=== PATIENT | female | born 1995 | race Caucasian/White ===

== ENCOUNTER → 2016-12-26 | Outpatient (CLI) | payer OTHER ==
--- NOTE | 2016-12-27 12:47 | ECHOF ---
Referral Reason:R07.9 chest pain MEASUREMENTS -------- HEIGHT: 157.5 cm WEIGHT: 59.9 kg BP: IVSd: 0.8 cm (0.6 - 1.1) LVIDd: 4.1 cm (3.9 - 5.3) LVPWd: 1.0 cm (0.6 - 1.1) IVSs: 1.4 cm LVIDs: 2.3 cm LVPWs: 1.5 cm Ao Diam: 2.4 cm (2.0 - 3.7) AV Cusp: 1.9 cm (1.5 - 2.6) LA Diam: 2.7 cm (2.7 - 3.8) MV EXCURSION: 16.638 mm (> 18.000) MV EF SLOPE: 102 mm/s (70 - 150) EPSS: 0.4 cm MV E Jose: 0.93 m/s MV DecT: 223 ms MV A Jose: 0.50 m/s MV E/A Ratio: 1.88 RAP: 5.00 mmHg RVSP: 14.63 mmHg FINDINGS -------- Sinus rhythm. This was a technically good study. Left ventricular wall thickness is normal. Overall left ventricular systolic function is normal with, an EF between 55 - 60 %. The right ventricle is normal in size and function. The left atrium is normal in size. The right atrium is normal in size. The aortic valve is trileaflet, and appears structurally normal. No aortic stenosis or regurgitation. There is trace mitral regurgitation. There is mild mitral valve prolapse. Mild tricuspid regurgitation present. The right ventricular systolic pressure, as measured by Doppler, is 14.63mmHg. Pulmonic valve appears structurally normal. The aortic root size is normal. The pericardium is normal. CONCLUSIONS -------- 1. Sinus rhythm. 2. There is mild mitral valve prolapse. 3. Mild tricuspid regurgitation present. 4. The right ventricular systolic pressure, as measured by Doppler, is 14.63mmHg. 5. Pulmonic valve appears structurally normal. 6. The aortic root size is normal. 7. The pericardium is normal. 8. This was a technically good study. 9. Left ventricular wall thickness is normal. 10. Overall left ventricular systolic function is normal with, an EF between 55 - 60 %. 11. The right ventricle is normal in size and function. 12. The left atrium is normal in size. 13. The right atrium is normal in size. 14. The aortic valve is trileaflet, and appears structurally normal. No aortic stenosis or regurgitation. 15. There is trace mitral regurgitation. TIE CUTTER: Amira Urban RDCS
== END ==
LOC: RADECHMAIN 13:10
PROVIDERS: ATTEND Family Medicine
DX: I34.1 Nonrheumatic mitral (valve) prolapse (principal); I34.0 Nonrheumatic mitral (valve) insufficiency; I36.1 Nonrheumatic tricuspid (valve) insufficiency
CPT/HCPCS: 93306

== ENCOUNTER 2017-02-03 17:20 | Emergency (ER) | payer OTHER ==
--- NOTE | 2017-02-03 18:30 | ED ---
Chest Pain HPI - General Chief Complaint: Chest Pain Stated Complaint: CHEST PAIN Time Seen by Provider: 02/03/17 18:06 Source: patient, RN notes reviewed Mode of arrival: wheelchair Limitations: no limitations - History of Present Illness Initial Comments: Patient is a 21-year-old female presents emergency room for evaluation of chest pain. Patient states been having on and off chest pain for the past 4 months. Patient states she's followed up with her primary care provider and an echocardiogram done. Patient states she has an appointment with her primary care provider on Monday for results. Patient states while walking to the store today she began having left-sided chest pain lasted only a few seconds. Patient states the chest pain subsided afterwards. Patient denies any current chest pain. Patient states the chest pain is only worsened every time she walks or does a physical activity. Patient denies shortness of breath. Patient denies nausea vomiting. Patient denies the pain worsening after eating anything. Patient denies any significant past medical history. Patient states she is on control. Patient is being on any other medications. Patient denies smoking. - Related Data Home Medications Medication Instructions Recorded Confirmed Norgestimate-Ethinyl Estradiol 1 tab PO DAILY 03/22/16 02/03/17 [Sprintec 28 Day Tablet] Allergies Allergy/AdvReac Type Severity Reaction Status Date / Time No Known Allergies Allergy Verified 02/03/17 18:05 Review of Systems ROS Statement: Those systems with pertinent positive or pertinent negative responses have been documented in the HPI. ROS Other: All systems not noted in ROS Statement are negative. EKG Findings - EKG Comments: EKG Findings:: normal sinus rhythm with sinus arrhythmia, ventricular rate 68 bpm, MI interval 156 ms, QRS duration 98 ms, QT/QTC 396/421 ms Past Medical History Past Medical History: No Reported History History of Any Multi-Drug Resistant Organisms: None Reported Past Surgical History: No Surgical Hx Reported Additional Past Surgical History / Comment(s): tubes in ears Past Psychological History: ADD/ADHD Smoking Status: Never smoker Past Alcohol Use History: None Reported Past Drug Use History: None Reported General Exam - General Exam Comments Initial Comments: sitting in exam room, no acute distress. Limitations: no limitations General appearance: alert, in no apparent distress Head exam: Present: atraumatic, normocephalic, normal inspection Eye exam: Present: normal appearance ENT exam: Present: normal exam Neck exam: Present: normal inspection Respiratory exam: Present: normal lung sounds bilaterally. Absent: respiratory distress Cardiovascular Exam: Present: regular rate, normal rhythm, normal heart sounds Extremities exam: Present: normal inspection Back exam: Present: normal inspection Neurological exam: Present: alert, oriented X3, CN II-XII intact, normal gait Psychiatric exam: Present: normal affect, normal mood Skin exam: Present: warm, dry, intact, normal color. Absent: rash Course Vital Signs 02/03/17 17:54 Temperature 97.9 F Pulse Rate 79 Respiratory 16 Rate Blood Pressure 114/57 O2 Sat by Pulse 98 Oximetry Chest Pain MDM - MDM patient is a 21-year-old since emergency room for chest pain. She is chest pain while walking long distances or physical activity. Patient denies any current chest pain. X-ray shows no acute findings. Advised patient to follow- up with her primary care provider for echocardiogram results. Advised patient to refrain from starting his physical activity until reevaluated. Patient states she understands everything that was discussed with her. Return parameters discussed. Case discussed with Dr. Castillo. Disposition Clinical Impression: Chest pain Disposition: HOME SELF-CARE Condition: Good Instructions: Costochondritis (ED), Chest Pain (ED) Additional Instructions: Take Tylenol or Motrin as needed for pain. Please follow up with primary care provider for further evaluation. If any new symptom arises or symptoms worsen, return to ER as soon as possible. Referrals: Scot Neff MD [Primary Care Provider] - 1-2 days Time of Disposition: 19:39
--- NOTE | 2017-02-03 19:08 | XR ---
EXAMINATION TYPE: XR chest 2V DATE OF EXAM: 02/03/2017 6:55 PM COMPARISON: 03/22/2016 HISTORY: Irregular heart rate TECHNIQUE: Frontal and lateral views of the chest are obtained. FINDINGS: Heart and mediastinum are normal. Lungs are clear. Diaphragm is normal. Bony thorax appear s normal. IMPRESSION: Normal chest. No change.
[2017-02-03 19:47] VITALS: BP 104/63; PULSE 65; RESP 18; TEMP 97
== END 2017-02-03 19:47 | disposition home or self-care (01) ==
LOC: EC 17:20
DX: R07.9 Chest pain, unspecified (principal); Z79.3 Long term (current) use of hormonal contraceptives
CPT/HCPCS: 71020; 93005; 99285

== ENCOUNTER 2017-04-05 21:02 | Emergency (ER) | payer OTHER ==
--- NOTE | 2017-04-05 21:43 | ED ---
General Adult HPI - General Chief complaint: Recheck/Abnormal Lab/Rx Stated complaint: 3 weeks /Bleeding Time Seen by Provider: 04/05/17 21:07 Source: patient, RN notes reviewed Mode of arrival: ambulatory Limitations: no limitations - History of Present Illness Initial comments: 21-year-old female presents emergency Department chief complaint of concern for . Patient states that she stopped taking her control and today she started to have some vaginal bleeding so she is concerned that she is possibly having a miscarriage. Patient states he has not missed a menstrual cycle and she is due for one next week. Patient states she does have a history of miscarriage in the past so she was concerned. Patient denies any pain. Patient states bleeding much like a normal period. Patient states that she did not take any tests at home. Patient states that she was concerned due to her symptoms so she thought that she should be evaluated. Patient denies any recent fever, chills, shortness of breath, chest pain, back pain, abdominal pain, nausea vomiting, numbness or tingling, dysuria or hematuria, constipation or diarrhea, headaches or visual changes, or any other current symptoms. - Related Data Home Medications Medication Instructions Recorded Confirmed No Known Home Medications [No 04/05/17 04/05/17 Known Home Medications] Allergies Allergy/AdvReac Type Severity Reaction Status Date / Time No Known Allergies Allergy Verified 02/03/17 18:05 Review of Systems ROS Statement: Those systems with pertinent positive or pertinent negative responses have been documented in the HPI. ROS Other: All systems not noted in ROS Statement are negative. Past Medical History Past Medical History: No Reported History Additional Past Medical History / Comment(s): muscle spasms around her heart History of Any Multi-Drug Resistant Organisms: None Reported Past Surgical History: No Surgical Hx Reported Additional Past Surgical History / Comment(s): tubes in ears Past Psychological History: ADD/ADHD Smoking Status: Former smoker Past Alcohol Use History: Occasional Past Drug Use History: None Reported General Exam Limitations: no limitations General appearance: alert, in no apparent distress Eye exam: Present: normal appearance, PERRL, EOMI. Absent: scleral icterus, conjunctival injection, periorbital swelling ENT exam: Present: normal exam, mucous membranes moist Neck exam: Present: normal inspection. Absent: tenderness, meningismus, lymphadenopathy Respiratory exam: Present: normal lung sounds bilaterally. Absent: respiratory distress, wheezes, rales, rhonchi, stridor Cardiovascular Exam: Present: regular rate, normal rhythm, normal heart sounds. Absent: systolic murmur, diastolic murmur, rubs, gallop, clicks Neurological exam: Present: alert, oriented X3 Psychiatric exam: Present: normal affect, normal mood Skin exam: Present: warm, dry, intact, normal color. Absent: rash Course Vital Signs 04/05/17 21:20 Temperature 99.0 F Pulse Rate 89 Respiratory 18 Rate Blood Pressure 102/52 O2 Sat by Pulse 96 Oximetry Medical Decision Making - Medical Decision Making 21-year-old female presents emergency room chief complaint of concern for . At this time urine is reviewed that does appear to not be . This and there is blood. We discussed patient most likely is having menstruation. Patient is asymptomatic and more likely to be associated menstruation contamination than UTI. We did discuss that she developed symptoms she is return the emergency department. We discussed return parameters all questions. She states she understood and they're negative plan. They will be discharged. - Lab Data Lab Results 04/05/17 04/05/17 Range/Units 21:15 21:15 Urine Color Light Red Urine Appearance Cloudy H (Clear) Urine pH 6.0 (5.0-8.0) Ur Specific Golden 1.022 (1.001-1.035) Urine Protein 1+ H (Negative) Urine Glucose (UA) Negative (Negative) Urine Ketones Negative (Negative) Urine Blood Large H (Negative) Urine Nitrite Negative (Negative) Urine Bilirubin Negative (Negative) Urine Urobilinogen 3.0 (<2.0) mg/dL Ur Leukocyte Esterase Large H (Negative) Urine RBC >182 H (0-5) /hpf Urine WBC 104 H (0-5) /hpf Ur Squamous Epith Cells 5 H (0-4) /hpf Urine Mucus Occasional H (None) /hpf Urine HCG, Qual Not Detected (Not Detectd) Disposition Clinical Impression: Abnormal menses Disposition: HOME SELF-CARE Condition: Stable Instructions: Control Pills (ED) Additional Instructions: Please use medication as discussed. Please follow up with family doctor if symptoms have not improved over the next two days. Please return to the emergency room if your symptoms increase or worsen or for any other concerns. Referrals: Scot Neff MD [Primary Care Provider] - 1-2 days Time of Disposition: 21:55
[2017-04-05 21:50] VITALS: BP 102/52; PULSE 89; RESP 18; TEMP 99
[2017-04-05 21:50] LABS: Appearance,Urine Cloudy (Clear); Bilirubin,Urine Negative (Negative); Glucose,Urine (UA) Negative (Negative); Ketones,Urine Negative (Negative); Leukocyte Esterase,Urine Large (Negative); Mucus,Urine Occasional /hpf; Nitrite,Urine Negative (Negative); Particle Count 11367; Protein,Urine 1+ (Negative); RBC,Urine >182 /hpf (0-5); Specific Gravity,Urine 1.022 (1.001-1.035); Squamous Epithelial Cell,Urine 5 /hpf (0-4); UA Billing (MACRO vs. MICRO) MICRO; WBC,Urine 104 /hpf (0-5)
== END 2017-04-05 22:00 | disposition home or self-care (01) ==
LOC: EC 21:02
DX: N92.5 Other specified irregular menstruation (principal); Z87.891 Personal history of nicotine dependence
CPT/HCPCS: 81001; 81025; 99284

== ENCOUNTER 2017-06-02 17:27 | Emergency (ER) | payer OTHER ==
--- NOTE | 2017-06-02 17:54 | ED ---
General Adult HPI - General Chief complaint: Headache Stated complaint: Headache Time Seen by Provider: 06/02/17 17:40 Source: patient, RN notes reviewed Mode of arrival: ambulatory Limitations: no limitations - History of Present Illness Initial comments: Patient is a 21-year-old female who presents emergency room today with a chief complaint of headache that began yesterday when she woke up. She denies any injury or trauma. Does admit that she has a history of headache but states his headache is somewhat different than headaches she experienced in the past. She describes it as a "pounding" type headache located to the side. She currently rates it a 10/10. Patient is to nausea. She also admits to photosensitivity. She denies any other complaints or associated symptoms. Patient denies any recent fever, chills, shortness of breath, chest pain, back pain, abdominal pain , vomiting, numbness or tingling, dysuria or hematuria, constipation or diarrhea , visual changes, or any other complaints. - Related Data Home Medications Medication Instructions Recorded Confirmed Ibuprofen [Motrin] 800 mg PO TID PRN 06/02/17 06/02/17 Previous Rx's Medication Instructions Recorded Butalb/APAP/Caff 50-325-40Mg 1 tab PO Q4-6H PRN #15 tablet 06/02/17 [Fioricet 50-325-40] Fluticasone Propionate [Flonase 1 - 2 spray EA NOSTRIL DAILY 5 Days 06/02/17 Allergy Relief] Metoclopramide HCl [Reglan] 10 mg PO Q6HR PRN #10 day 06/02/17 Allergies Allergy/AdvReac Type Severity Reaction Status Date / Time No Known Allergies Allergy Verified 06/02/17 17:56 Review of Systems ROS Statement: Those systems with pertinent positive or pertinent negative responses have been documented in the HPI. ROS Other: All systems not noted in ROS Statement are negative. Past Medical History Past Medical History: No Reported History Additional Past Medical History / Comment(s): muscle spasms around her heart History of Any Multi-Drug Resistant Organisms: None Reported Past Surgical History: No Surgical Hx Reported Additional Past Surgical History / Comment(s): tubes in ears Past Psychological History: ADD/ADHD Smoking Status: Former smoker Past Alcohol Use History: Occasional Past Drug Use History: None Reported General Exam - General Exam Comments Initial Comments: General: The patient is awake and alert, in no distress, and does not appear acutely ill. Eye: Pupils are equal, round and reactive to light, extra-ocular movements are intact. No nystagmus. There is normal conjunctiva bilaterally. No signs of icterus. Ears, nose, mouth and throat: There are moist mucous membranes and no oral lesions. Neck: The neck is supple, there is no tenderness or JVD. Cardiovascular: There is a regular rate and rhythm. No murmur, rub or gallop is appreciated. Respiratory: Lungs are clear to auscultation, respirations are non-labored, breath sounds are equal. No wheezes, stridor, rales, or rhonchi. Gastrointestinal: Soft, non-distended, non-tender abdomen without masses or organomegaly noted. There is no rebound or guarding present. No CVA tenderness. Bowel sounds are unremarkable. Musculoskeletal: Normal ROM, no tenderness. Strength 5/5. Sensation intact. Pulses equal bilaterally 2+. Neurological: A&O x 3. CN II-XII intact, There are no obvious motor or sensory deficits. Coordination appears grossly intact. Speech is normal. Skin: Skin is warm and dry and no rashes or lesions are noted. Psychiatric: Cooperative, appropriate mood & affect, normal judgment. Limitations: no limitations Course Vital Signs 06/02/17 17:32 Temperature 99.0 F Pulse Rate 91 Respiratory 20 Rate Blood Pressure 110/58 O2 Sat by Pulse 97 Oximetry Medical Decision Making - Medical Decision Making Patient's CT has been reviewed and does show evidence for right maxillary sinusitis. No other acute abnormalities. Patient resting comfortably in stretcher. Case was discussed with attending physician . Options were discussed with patient about IV and IV medications for her headache. She states she does not like needles does not want have any IVs placed or IV medication. Patient is agreeable to oral medication for her headaches. Patient is advised follow-up family doctor in the next 2 days. Advised return here to the emergency room symptoms increase worsen. Will be given ibuprofen, Benadryl, Reglan, Fioricet by mouth here in the ER discharged home. - Lab Data Lab Results 06/02/17 Range/Units 18:25 Urine HCG, Qual Not Detected (Not Detectd) Disposition Clinical Impression: Acute headache, Sinusitis Disposition: HOME SELF-CARE Condition: Good Instructions: Acute Headache (ED) Additional Instructions: Please use medication as discussed. Please follow-up with family doctor in the next 2 days of symptoms have not improved. Please return to emergency room if the symptoms increase or worsen or for any other concerns. Prescriptions: Butalb/APAP/Caff 50-325-40Mg [Fioricet 50-325-40] 1 tab PO Q4-6H PRN #15 tablet PRN Reason: Headache Fluticasone Propionate [Flonase Allergy Relief] 1 - 2 spray EA NOSTRIL DAILY 5 Days Metoclopramide HCl [Reglan] 10 mg PO Q6HR PRN #10 day PRN Reason: Nausea Referrals: Scot Neff MD [Primary Care Provider] - 1-2 days Time of Disposition: 19:40
--- NOTE | 2017-06-02 19:26 | CT ---
EXAMINATION TYPE: CT brain wo con DATE OF EXAM: 06/02/2017 COMPARISON: NONE HISTORY: Headache for [address] DLP: 1121 mGycm. Automated Exposure Control for Dose Reduction was Utilized. TECHNIQUE: CT scan of the head is performed without contrast. FINDINGS: Ventricles and sulci appear normal. There is no mass effect nor midline shift. There is no sign of intracranial hemorrhage. The calvarium is intact. There is mild mucosal thickening in the rig ht maxillary sinus.. IMPRESSION: Mild right maxillary sinusitis. Otherwise negative exam.
[2017-06-02] MEDS ORDERED: METOCLOPRAMIDE 10 MG TAB PO STA (19:38)
[2017-06-02] MEDS ORDERED: diphenhydrAMINE 50 MG CAP PO STA (19:38)
[2017-06-02] MEDS ORDERED: IBUPROFEN 600 MG TAB PO STA (19:38)
[2017-06-02] MEDS ORDERED: BUTALB/APAP/CAFF 50-325-40MG TAB PO STA (19:38)
[2017-06-02 20:00] VITALS: BP 128/67; PULSE 89; RESP 18; TEMP 97.8
== END 2017-06-02 20:00 | disposition home or self-care (01) ==
LOC: EC 17:27
DX: J32.0 Chronic maxillary sinusitis (principal); H53.149 Visual discomfort, unspecified; Z87.891 Personal history of nicotine dependence
CPT/HCPCS: 70450; 81025; 99284

== ENCOUNTER 2018-01-04 19:22 | Emergency (ER) | payer OTHER ==
[2018-01-04 19:27] VITALS: BP 100/63; PULSE 100; RESP 20; TEMP 97.6
--- NOTE | 2018-01-04 20:13 | ED ---
General Adult HPI - General Chief complaint: Back Pain/Injury Stated complaint: Back pain Source: patient, family, RN notes reviewed Mode of arrival: ambulatory Limitations: no limitations - History of Present Illness Initial comments: Chief complaint and history of present illness a 22-year-old female with low back discomfort. No radiation. No nausea no vomiting no fever no chills. The patient thinks he strained it while lifting her 2-year-old. 3 weeks ago soon after it occurred she saw her family doctor he did x-rays lumbosacral spine. She is not gotten the results as of yet. She is run out of her Motrin 800. - Related Data Home Medications Medication Instructions Recorded Confirmed Cyclobenzaprine [Flexeril] 10 mg PO TID PRN 01/04/18 01/04/18 Previous Rx's Medication Instructions Recorded Naproxen Sodium [Anaprox] 275 mg PO BID #12 tab 01/04/18 Allergies Allergy/AdvReac Type Severity Reaction Status Date / Time No Known Allergies Allergy Verified 01/04/18 19:32 Review of Systems ROS Statement: Those systems with pertinent positive or pertinent negative responses have been documented in the HPI. Review of systems. No other complaints other than paralumbar discomfort. No pain with sitting still. Pain with flexing. Pain can be mildly controlled with putting pressure over the same muscles well flexing. No numbness no tingling to her lower extremities no difficulty urinating or bowel movements. Patient is sure she is not and declines a test. The patient did not injure herself by falling and no trauma. Repeating x-rays at this time is not necessary. Patient encouraged to call her family doctor for final results of the x-ray she had taken of the same area 3 weeks ago. Past medical problems none. Surgeries ear tubes. Family history grandfather had testicular cancer. The patient's gynecological history is G2 to para 1 with one miscarriage. Patient denies ALLERGIES she quit smoking 20 years ago. Drinks alcohol occasionally socially. ROS Other: All systems not noted in ROS Statement are negative. Past Medical History Past Medical History: No Reported History Additional Past Medical History / Comment(s): muscle spasms around her heart, shingles History of Any Multi-Drug Resistant Organisms: None Reported Past Surgical History: Ear Surgery Additional Past Surgical History / Comment(s): tubes in ears Past Psychological History: ADD/ADHD Smoking Status: Former smoker Past Alcohol Use History: Occasional Past Drug Use History: None Reported General Exam - General Exam Comments Initial Comments: General: The patient is awake and alert, in no distress, and does not appear acutely ill. Here because of lumbosacral muscular strain. No direct injuries. Vital signs temperature 97.6 pulse 100 respiratory rate 20 pulse ox 96% room air blood pressure 100/63 Eye: Pupils are equal, extra-ocular movements are intact; there is normal conjunctiva bilaterally. Ears, nose, mouth and throat: There are moist mucous membranes Neck: The neck is supple, No complaint of chest pain, palpitations or shortness of breath. No nausea no vomiting no difficulty with urinating or bowel movements. Back: Mild tenderness with flexion, mild discomfort with palpation of the area. No bulging noted. No rashes noted early shingles discussed. Negative leg lift test Musculoskeletal: Negative leg lift test. Neurological: No neuro deficits Limitations: no limitations Course Vital Signs 01/04/18 19:24 Temperature 97.6 F Pulse Rate 100 Respiratory 20 Rate Blood Pressure 100/63 O2 Sat by Pulse 96 Oximetry Medical Decision Making - Medical Decision Making Medical decision making; this is a 22-year-old female complaint of lumbosacral muscular strain. Examination followed by full explanation followed. Patient was giving advice concerning use of medications for discomfort as well as gentle stretching as well as heat alternating with cold compresses. Advised to call her family physician for x-ray results. Return emergency room as needed Disposition Clinical Impression: Strain of lumbar region Disposition: HOME SELF-CARE Condition: Stable Instructions: Acute Low Back Pain (ED) Additional Instructions: Use heat alternating with cool compresses and gentle stretching of the lumbar spine muscles. Follow-up with family physician. Return emergency room as needed Prescriptions: Naproxen Sodium [Anaprox] 275 mg PO BID #12 tab Referrals: Scot Neff MD [Primary Care Provider] - 1-2 days Time of Disposition: 20:13
== END 2018-01-04 20:17 | disposition home or self-care (01) ==
LOC: EC 19:22
DX: S39.012A Strain of muscle, fascia and tendon of lower back, initial encounter (principal); Z87.891 Personal history of nicotine dependence; X58.XXXA Exposure to other specified factors, initial encounter
CPT/HCPCS: 99283

== ENCOUNTER 2018-02-07 17:18 | Emergency (ER) | payer OTHER ==
[2018-02-07 17:31] VITALS: BP 110/70; PULSE 80; TEMP 98.5
--- NOTE | 2018-02-07 18:15 | ED ---
General Adult HPI - General Chief complaint: Upper Respiratory Infection Stated complaint: Cough & rib pain Time Seen by Provider: 02/07/18 17:36 Source: patient, RN notes reviewed Mode of arrival: ambulatory Limitations: no limitations - History of Present Illness Initial comments: Patient 22-year-old female presenting to the emergency room today with a chief complaint of cough congestion over the last week. Did see the urgent care was prescribed a cough medication and albuterol inhaler. Patient states little relief. Patient states increased cough congestion with sputum production at times. She denies any complaints or symptoms. - Related Data Home Medications Medication Instructions Recorded Confirmed Albuterol Inhaler [Ventolin Hfa 1 - 2 puff INHALATION RT-Q6H PRN 02/07/18 Inhaler] Promethazine 6.25MG/5Ml [Phenergan 6.25 mg PO HS PRN 02/07/18 02/07/18 Syrup] Previous Rx's Medication Instructions Recorded Azithromycin [Zithromax Z-pack] 0 mg PO DIRECTED #6 tab 02/07/18 Allergies Allergy/AdvReac Type Severity Reaction Status Date / Time No Known Allergies Allergy Verified 02/07/18 17:40 Review of Systems ROS Statement: Those systems with pertinent positive or pertinent negative responses have been documented in the HPI. ROS Other: All systems not noted in ROS Statement are negative. Past Medical History Past Medical History: No Reported History Additional Past Medical History / Comment(s): muscle spasms around her heart, shingles History of Any Multi-Drug Resistant Organisms: None Reported Past Surgical History: Ear Surgery Additional Past Surgical History / Comment(s): tubes in ears Past Psychological History: ADD/ADHD Smoking Status: Former smoker Past Alcohol Use History: Occasional Past Drug Use History: None Reported General Exam Limitations: no limitations Course Vital Signs 02/07/18 17:27 Temperature 98.5 F Pulse Rate 80 Respiratory 16 Rate Blood Pressure 110/70 O2 Sat by Pulse 98 Oximetry Medical Decision Making - Medical Decision Making X-ray reviewed no evidence for pneumonia. Patient was started on azithromycin. Patient be discharged home. Disposition Clinical Impression: Acute bronchitis Disposition: HOME SELF-CARE Condition: Good Instructions: Upper Respiratory Infection (ED) Additional Instructions: Please use medication as discussed. Please follow-up with family doctor in the next 2 days of symptoms have not improved. Please return to emergency room if the symptoms increase or worsen or for any other concerns. Prescriptions: Azithromycin [Zithromax Z-pack] 0 mg PO DIRECTED #6 tab Is patient prescribed a controlled substance at d/c from ED?: No Referrals: Scot Neff MD [Primary Care Provider] - 1-2 days Time of Disposition: 18:15
--- NOTE | 2018-02-07 18:15 | XR ---
EXAMINATION TYPE: XR chest 2V DATE OF EXAM: 02/07/2018 COMPARISON: 02/03/17 HISTORY: Chest pain TECHNIQUE: Frontal and lateral views of the chest are obtained. FINDINGS: There is no focal air space opacity. No evidence for pneumothorax. No pleural effusion. The cardiac silhouette size is within normal limits. The osseous structures are grossly intact. IMPRESSION: 1. No acute cardiopulmonary process.
[2018-02-07 18:37] VITALS: RESP 18
== END 2018-02-07 18:37 | disposition home or self-care (01) ==
LOC: EC 17:18
DX: J20.9 Acute bronchitis, unspecified (principal); Z87.891 Personal history of nicotine dependence
CPT/HCPCS: 71046; 99283

== ENCOUNTER 2018-02-09 01:05 | Emergency (ER) | payer OTHER ==
[2018-02-09 01:18] VITALS: RESP 16
[2018-02-09] MEDS ORDERED: ONDANSETRON 4 MG/2 ML VIAL IVP STA (01:49)
[2018-02-09] MEDS ORDERED: SODIUM CHLORIDE 0.9% 1,000 ML IV ONE (01:49)
[2018-02-09 02:08] LABS: Appearance,Urine Clear (Clear); Basophils % (A) 1 %; Bilirubin,Urine Negative (Negative); Blood,Urine Negative (Negative); Color,Urine Colorless; Eosinophils # (A) 0.2 k/uL (0-0.7); Eosinophils % (A) 4 %; Glucose,Urine (UA) Negative (Negative); HCT 41.6 % (34.0-46.0); HGB 14.1 gm/dL (11.4-16.0); Ketones,Urine Negative (Negative); Leukocyte Esterase,Urine Negative (Negative); Lymphocytes # (A) 1.5 k/uL (1.0-4.8); Lymphocytes % (A) 26 %; MCH 29.4 pg (25.0-35.0); MCHC 33.9 g/dL (31.0-37.0); MCV 86.5 fL (80.0-100.0); Mean Platelet Volume 6.9; Monocytes # (A) 0.4 k/uL (0-1.0); Monocytes % (A) 7 %; Neutrophils # (A) 3.5 k/uL (1.3-7.7); Neutrophils % (A) 61 %; Nitrite,Urine Negative (Negative); PH, Urine 6.5 (5.0-8.0); Platelet Count 252 k/uL (150-450); Protein,Urine Negative (Negative); RDW 12.8 % (11.5-15.5); Specific Gravity,Urine 1.002 (1.001-1.035); Urobilinogen,Urine <2.0 mg/dL (<2.0); WBC 5.8 k/uL (3.8-10.6)
[2018-02-09 02:22] LABS: ALT 30 U/L (9-52); AST 20 U/L (14-36); Albumin 3.5 g/dL (3.5-5.0); Alkaline Phosphatase 49 U/L (38-126); Anion Gap 9 mmol/L; Blood Urea Nitrogen 9 mg/dL (7-17); Calcium 9.4 mg/dL (8.4-10.2); Carbon Dioxide 26 mmol/L (22-30); Chloride 106 mmol/L (98-107); Glucose 86 mg/dL (74-99); Potassium 4.3 mmol/L (3.5-5.1); Sodium 141 mmol/L (137-145); Total Bilirubin 0.7 mg/dL (0.2-1.3); Total Protein 5.8 g/dL (6.3-8.2)
--- NOTE | 2018-02-09 02:40 | ED ---
Dizziness HPI - General Chief Complaint: Dizziness Stated Complaint: Vertigo Time Seen by Provider: 02/09/18 01:30 Source: patient, family, EMS Mode of arrival: EMS Limitations: no limitations - History of Present Illness Initial Comments: This patient is 22-year-old woman who presents with complaint that she is feeling dizzy, lightheaded, and having nausea. The patient states that this has come on over the past nearly one day. Prior to that she was having cough with some chest congestion. She was seen here 2 days ago, diagnosed with bronchitis and started on medications for that. MD Complaint: dizziness, lightheadedness Onset/Timin -: days(s) Timing: gradual onset Description: nausea, near-syncope History of Same: No History of Trauma: No Severity: moderate Improves With: remaining still Associated Symptoms: cough - Related Data Home Medications Medication Instructions Recorded Confirmed Albuterol Inhaler [Ventolin Hfa 1 - 2 puff INHALATION RT-Q6H PRN 02/07/18 Inhaler] Promethazine 6.25MG/5Ml [Phenergan 6.25 mg PO HS PRN 02/07/18 02/07/18 Syrup] Previous Rx's Medication Instructions Recorded Azithromycin [Zithromax Z-pack] 0 mg PO DIRECTED #6 tab 02/07/18 Famotidine [Pepcid] 20 mg PO BID #14 tablet 02/09/18 Ondansetron Odt [Zofran ODT] 4 mg PO Q8HR PRN #10 tab 02/09/18 Allergies Allergy/AdvReac Type Severity Reaction Status Date / Time No Known Allergies Allergy Verified 02/09/18 01:18 Review of Systems ROS Statement: Those systems with pertinent positive or pertinent negative responses have been documented in the HPI. ROS Other: All systems not noted in ROS Statement are negative. Constitutional: Denies: fever, chills ENT: Reports: congestion. Denies: throat pain Respiratory: Reports: cough. Denies: dyspnea, hemoptysis Cardiovascular: Denies: chest pain, palpitations Gastrointestinal: Reports: nausea. Denies: abdominal pain, vomiting, diarrhea Genitourinary: Denies: dysuria, hematuria Musculoskeletal: Denies: back pain Skin: Denies: rash Neurological: Denies: headache, weakness, numbness Past Medical History Past Medical History: No Reported History Additional Past Medical History / Comment(s): muscle spasms around her heart, shingles History of Any Multi-Drug Resistant Organisms: None Reported Past Surgical History: Ear Surgery Additional Past Surgical History / Comment(s): tubes in ears Past Psychological History: ADD/ADHD Smoking Status: Former smoker Past Alcohol Use History: Occasional Past Drug Use History: None Reported General Exam Limitations: no limitations General appearance: alert, in no apparent distress Head exam: Present: atraumatic, normocephalic Eye exam: Present: normal appearance. Absent: scleral icterus, conjunctival injection ENT exam: Present: mucous membranes dry Respiratory exam: Present: normal lung sounds bilaterally. Absent: respiratory distress, wheezes, rales, rhonchi, stridor Cardiovascular Exam: Present: regular rate, normal rhythm, normal heart sounds. Absent: systolic murmur, diastolic murmur, rubs, gallop GI/Abdominal exam: Present: soft. Absent: tenderness Extremities exam: Present: normal inspection, normal capillary refill. Absent: pedal edema, calf tenderness Back exam: Present: normal inspection. Absent: CVA tenderness (R), CVA tenderness (L) Neurological exam: Present: alert Skin exam: Present: warm, dry, intact, normal color. Absent: rash Course Vital Signs 02/09/18 02/09/18 02/09/18 01:16 02:03 03:16 Temperature 97.9 F 97.3 F L Pulse Rate 66 75 79 Respiratory 16 16 16 Rate Blood Pressure 136/70 128/63 107/59 O2 Sat by Pulse 99 98 100 Oximetry Medical Decision Making - Lab Data Result diagrams: 02/09/18 01:13 02/09/18 01:13 Lab Results 02/09/18 02/09/18 02/09/18 Range/Units 01:13 01:13 01:13 WBC 5.8 (3.8-10.6) k/uL RBC 4.80 (3.80-5.40) m/uL Hgb 14.1 (11.4-16.0) gm/dL Hct 41.6 (34.0-46.0) % MCV 86.5 (80.0-100.0) fL MCH 29.4 (25.0-35.0) pg MCHC 33.9 (31.0-37.0) g/dL RDW 12.8 (11.5-15.5) % Plt Count 252 (150-450) k/uL Neutrophils % 61 % Lymphocytes % 26 % Monocytes % 7 % Eosinophils % 4 % Basophils % 1 % Neutrophils # 3.5 (1.3-7.7) k/uL Lymphocytes # 1.5 (1.0-4.8) k/uL Monocytes # 0.4 (0-1.0) k/uL Eosinophils # 0.2 (0-0.7) k/uL Basophils # 0.0 (0-0.2) k/uL Sodium 141 (137-145) mmol/L Potassium 4.3 (3.5-5.1) mmol/L Chloride 106 (98-107) mmol/L Carbon Dioxide 26 (22-30) mmol/L Anion Gap 9 mmol/L BUN 9 (7-17) mg/dL Creatinine 0.80 (0.52-1.04) mg/dL Est GFR (CKD-EPI)AfAm >90 (>60 ml/min/1.73 sqM) Est GFR (CKD-EPI)NonAf >90 (>60 ml/min/1.73 sqM) Glucose 86 (74-99) mg/dL Calcium 9.4 (8.4-10.2) mg/dL Total Bilirubin 0.7 (0.2-1.3) mg/dL AST 20 (14-36) U/L ALT 30 (9-52) U/L Alkaline Phosphatase 49 (38-126) U/L Total Protein 5.8 L (6.3-8.2) g/dL Albumin 3.5 (3.5-5.0) g/dL Urine Color Urine Appearance (Clear) Urine pH (5.0-8.0) Ur Specific [place] (1.001-1.035) Urine Protein (Negative) Urine Glucose (UA) (Negative) Urine Ketones (Negative) Urine Blood (Negative) Urine Nitrite (Negative) Urine Bilirubin (Negative) Urine Urobilinogen (<2.0) mg/dL Ur Leukocyte Esterase (Negative) Urine HCG, Qual Not Detected (Not Detectd) 02/09/18 Range/Units 01:13 WBC (3.8-10.6) k/uL RBC (3.80-5.40) m/uL Hgb (11.4-16.0) gm/dL Hct (34.0-46.0) % MCV (80.0-100.0) fL MCH (25.0-35.0) pg MCHC (31.0-37.0) g/dL RDW (11.5-15.5) % Plt Count (150-450) k/uL Neutrophils % % Lymphocytes % % Monocytes % % Eosinophils % % Basophils % % Neutrophils # (1.3-7.7) k/uL Lymphocytes # (1.0-4.8) k/uL Monocytes # (0-1.0) k/uL Eosinophils # (0-0.7) k/uL Basophils # (0-0.2) k/uL Sodium (137-145) mmol/L Potassium (3.5-5.1) mmol/L Chloride (98-107) mmol/L Carbon Dioxide (22-30) mmol/L Anion Gap mmol/L BUN (7-17) mg/dL Creatinine (0.52-1.04) mg/dL Est GFR (CKD-EPI)AfAm (>60 ml/min/1.73 sqM) Est GFR (CKD-EPI)NonAf (>60 ml/min/1.73 sqM) Glucose (74-99) mg/dL Calcium (8.4-10.2) mg/dL Total Bilirubin (0.2-1.3) mg/dL AST (14-36) U/L ALT (9-52) U/L Alkaline Phosphatase (38-126) U/L Total Protein (6.3-8.2) g/dL Albumin (3.5-5.0) g/dL Urine Color Colorless Urine Appearance Clear (Clear) Urine pH 6.5 (5.0-8.0) Ur Specific [place] 1.002 (1.001-1.035) Urine Protein Negative (Negative) Urine Glucose (UA) Negative (Negative) Urine Ketones Negative (Negative) Urine Blood Negative (Negative) Urine Nitrite Negative (Negative) Urine Bilirubin Negative (Negative) Urine Urobilinogen <2.0 (<2.0) mg/dL Ur Leukocyte Esterase Negative (Negative) Urine HCG, Qual (Not Detectd) Disposition Clinical Impression: Side effect of medication Disposition: HOME SELF-CARE Condition: Good Instructions: Dizziness (ED) Prescriptions: Famotidine [Pepcid] 20 mg PO BID #14 tablet Ondansetron Odt [Zofran ODT] 4 mg PO Q8HR PRN #10 tab PRN Reason: Nausea Is patient prescribed a controlled substance at d/c from ED?: No Referrals: Scot Neff MD [Primary Care Provider] - 1-2 days
[2018-02-09 03:17] VITALS: BP 107/59; PULSE 79; TEMP 97.3
== END 2018-02-09 03:16 | disposition home or self-care (01) ==
LOC: EC 01:05
DX: R42 Dizziness and giddiness (principal); T50.905A Adverse effect of unspecified drugs, medicaments and biological substances, initial encounter; R55 Syncope and collapse; R11.0 Nausea; Z87.891 Personal history of nicotine dependence
CPT/HCPCS: 36415; 80053; 85025; 81003; 81025; 99284; 96374; 96361; J2405

== ENCOUNTER 2018-02-11 18:51 | Emergency (ER) | payer OTHER ==
[2018-02-11 18:55] VITALS: BP 107/68; PULSE 61; RESP 18; TEMP 98.1
[2018-02-11] MEDS ORDERED: diphenhydrAMINE 50 MG CAP PO STA (19:18)
[2018-02-11] MEDS ORDERED: TRIAMCINOLONE 0.1% CREAM 80 GM TUBE TOPICAL STA (19:21)
--- NOTE | 2018-02-11 19:23 | ED ---
Skin/Abscess/FB HPI - General Chief complaint: Skin/Abscess/Foreign Body Stated complaint: Rash Time Seen by Provider: 02/11/18 18:58 Source: patient, RN notes reviewed Mode of arrival: ambulatory Limitations: no limitations - History of Present Illness Initial comments: 22-year-old female presents emergency from she complaint rash. Patient states that she noticed the rash started last 24 hours EKG she states that she has a large areas of swelling and redness. She has no difficulty breathing noted with swallowing. Patient states that she does have 4 cats in the household that do have fleas but states has had please for several years. Patient states that she recently wash her sheets because she just got rid of her head lice. Patient denies any new soaps lotions detergents. She has not put anything on her rash or taken anything to help with itchiness. - Related Data Home Medications Medication Instructions Recorded Confirmed Albuterol Inhaler [Ventolin Hfa 1 - 2 puff INHALATION RT-Q6H PRN 02/07/18 Inhaler] Promethazine 6.25MG/5Ml [Phenergan 6.25 mg PO HS PRN 02/07/18 02/07/18 Syrup] Previous Rx's Medication Instructions Recorded Azithromycin [Zithromax Z-pack] 0 mg PO DIRECTED #6 tab 02/07/18 Famotidine [Pepcid] 20 mg PO BID #14 tablet 02/09/18 Ondansetron Odt [Zofran ODT] 4 mg PO Q8HR PRN #10 tab 02/09/18 Triamcinolone 0.1% Cream [Kenalog] 1 applicatio TOPICAL BID #30 gram 02/11/18 diphenhydrAMINE [Benadryl] 50 mg PO QID PRN #20 capsule 02/11/18 Allergies Allergy/AdvReac Type Severity Reaction Status Date / Time No Known Allergies Allergy Verified 02/11/18 18:55 Review of Systems ROS Statement: Those systems with pertinent positive or pertinent negative responses have been documented in the HPI. ROS Other: All systems not noted in ROS Statement are negative. Past Medical History Past Medical History: No Reported History Additional Past Medical History / Comment(s): muscle spasms around her heart, shingles History of Any Multi-Drug Resistant Organisms: None Reported Past Surgical History: Ear Surgery Additional Past Surgical History / Comment(s): tubes in ears Past Psychological History: ADD/ADHD Smoking Status: Former smoker Past Alcohol Use History: Occasional Past Drug Use History: None Reported General Exam Limitations: no limitations General appearance: alert, in no apparent distress Head exam: Present: atraumatic, normocephalic, normal inspection Eye exam: Present: normal appearance, PERRL, EOMI. Absent: scleral icterus, conjunctival injection, periorbital swelling ENT exam: Present: normal exam, normal oropharynx, mucous membranes moist Neck exam: Present: normal inspection, full ROM. Absent: tenderness, meningismus, lymphadenopathy Respiratory exam: Present: normal lung sounds bilaterally. Absent: respiratory distress, wheezes, rales, rhonchi, stridor Cardiovascular Exam: Present: regular rate, normal rhythm, normal heart sounds. Absent: systolic murmur, diastolic murmur, rubs, gallop, clicks Skin exam: Present: warm, dry, intact, normal color, rash (There are multiple areas on her torso, extremities that have erythematous slightly raised area and central clearing) Course Vital Signs 02/11/18 18:52 Temperature 98.1 F Pulse Rate 61 Respiratory 18 Rate Blood Pressure 107/68 O2 Sat by Pulse 96 Oximetry Medical Decision Making - Medical Decision Making 22-year-old female presents from for rash. This appears to be some sort of insect bite considering fleas secondary to known animals in the household with fleas. Patient will be given Kenalog cream, advised take Benadryl. Disposition Clinical Impression: Insect bite Disposition: HOME SELF-CARE Condition: Stable Instructions: Insect Bite or Sting (ED) Additional Instructions: Please return to the Emergency Department if symptoms worsen or any other concerns. Prescriptions: diphenhydrAMINE [Benadryl] 50 mg PO QID PRN #20 capsule PRN Reason: Pruritus Triamcinolone 0.1% Cream [Kenalog] 1 applicatio TOPICAL BID #30 gram Is patient prescribed a controlled substance at d/c from ED?: No Referrals: Scot Neff MD [Primary Care Provider] - 1-2 days
== END 2018-02-11 19:45 | disposition home or self-care (01) ==
LOC: EC 18:51
DX: S20.369A Insect bite (nonvenomous) of unspecified front wall of thorax, initial encounter (principal); T14.8XXA Other injury of unspecified body region, initial encounter; Z87.891 Personal history of nicotine dependence; W57.XXXA Bitten or stung by nonvenomous insect and other nonvenomous arthropods, initial encounter
CPT/HCPCS: 99282

== ENCOUNTER 2018-05-09 18:59 | Emergency (ER) | payer OTHER ==
--- NOTE | 2018-05-09 21:15 | XR ---
EXAMINATION TYPE: XR chest 2V DATE OF EXAM: 05/09/2018 COMPARISON: 02/07/2018 HISTORY: Cough TECHNIQUE: Frontal and lateral views of the chest are obtained. FINDINGS: Heart and mediastinum are normal. Lungs are clear. Diaphragm is normal. Bony thorax appear s normal. IMPRESSION: Normal chest. No change.
--- NOTE | 2018-05-09 21:51 | ED ---
General Adult HPI - General Chief complaint: Upper Respiratory Infection Stated complaint: SOB Time Seen by Provider: 05/09/18 20:18 Source: patient, RN notes reviewed Mode of arrival: ambulatory Limitations: no limitations - History of Present Illness Initial comments: 22-year-old female presents to the emergency department for a chief complaint of cough and congestion 2 days. Patient states she has had a nonproductive cough along with a runny nose and congestion. Patient states over the past few hours she has become short of breath when she coughs. Patient denies smoking. Patient denies any history of asthma. Patient has not taken any over-the- counter medications. Patient denies any chance of . Patient denies any fevers or chills at home. Patient denies any history of cardiovascular disease Patient has no other complaints at this time including chest pain, abdominal pain, nausea or vomiting, headache, or visual changes. - Related Data Home Medications Medication Instructions Recorded Confirmed Albuterol Inhaler [Ventolin Hfa 1 - 2 puff INHALATION RT-Q6H PRN 02/07/18 Inhaler] Promethazine 6.25MG/5Ml [Phenergan 6.25 mg PO HS PRN 02/07/18 02/07/18 Syrup] Previous Rx's Medication Instructions Recorded Azithromycin [Zithromax Z-pack] 0 mg PO DIRECTED #6 tab 02/07/18 Famotidine [Pepcid] 20 mg PO BID #14 tablet 02/09/18 Ondansetron Odt [Zofran ODT] 4 mg PO Q8HR PRN #10 tab 02/09/18 Triamcinolone 0.1% Cream [Kenalog 1 applicatio TOPICAL BID #30 gram 02/11/18 0.1% Cream] diphenhydrAMINE [Benadryl] 50 mg PO QID PRN #20 capsule 02/11/18 methylPREDNISolone Dose Pack 4 mg PO DIRECTED #21 package 05/09/18 [Medrol Dose Pack] Allergies Allergy/AdvReac Type Severity Reaction Status Date / Time No Known Allergies Allergy Verified 05/09/18 19:30 Review of Systems ROS Statement: Those systems with pertinent positive or pertinent negative responses have been documented in the HPI. ROS Other: All systems not noted in ROS Statement are negative. Past Medical History Past Medical History: No Reported History Additional Past Medical History / Comment(s): muscle spasms around her heart, shingles History of Any Multi-Drug Resistant Organisms: None Reported Past Surgical History: Ear Surgery Additional Past Surgical History / Comment(s): tubes in ears Past Psychological History: ADD/ADHD Smoking Status: Former smoker Past Alcohol Use History: Occasional Past Drug Use History: None Reported General Exam Limitations: no limitations General appearance: alert, in no apparent distress Head exam: Present: atraumatic, normocephalic, normal inspection Eye exam: Present: normal appearance, PERRL, EOMI. Absent: scleral icterus, conjunctival injection, periorbital swelling ENT exam: Present: normal exam, normal oropharynx, mucous membranes moist, TM's normal bilaterally, normal external ear exam Neck exam: Present: normal inspection, full ROM. Absent: tenderness, meningismus, lymphadenopathy Respiratory exam: Present: normal lung sounds bilaterally. Absent: respiratory distress, wheezes (no wheezing noted bilat), rales, rhonchi, stridor Cardiovascular Exam: Present: regular rate, normal rhythm, normal heart sounds. Absent: systolic murmur, diastolic murmur, rubs, gallop, clicks Neurological exam: Present: alert, oriented X3, CN II-XII intact Psychiatric exam: Present: normal affect, normal mood Course Vital Signs 05/09/18 05/09/18 05/09/18 19:26 20:39 21:57 Temperature 98.2 F 98.2 F Pulse Rate 100 78 Respiratory 16 17 19 Rate Blood Pressure 109/70 115/62 O2 Sat by Pulse 96 99 Oximetry Medical Decision Making - Medical Decision Making 22-year-old female since to the emergency department for a chief complaint of cough and congestion 2 days. Patient states the cough is nonproductive. Patient denies smoking or asthma history. Patient also admits to shortness of breath for the past half a day worsened with coughing. Patient did originally have a pulse rate of 100 which decreased to 78 in the emergency department. O2 saturation at 99%. Patient is afebrile in the emergency department. Patient denies any chance of , smoking, recent trauma, or history of cancer. X -ray shows a normal chest. No change. Strep is negative. Patient likely has a viral upper respiratory infection. Mild shortness of breath is likely related to cough. Patient states shortness of breath is completely resolved at this time. Patient will be given a steroid pack. She is to take over-the- counter cold medications. She will follow up with primary care in 1-2 days. She'll return to the emergency Department if she has any worsening symptoms which she agrees to and voices understanding of. - Lab Data Lab Results 05/09/18 Range/Units 21:00 Group A Strep Rapid Negative (Negative) Disposition Clinical Impression: Upper respiratory infection Disposition: HOME SELF-CARE Condition: Good Instructions: Upper Respiratory Infection (ED) Additional Instructions: Please take prescriptions as directed. Please follow-up with primary care in 1- 2 days. Please return to the emergency department if you have any worsening symptoms Prescriptions: methylPREDNISolone Dose Pack [Medrol Dose Pack] 4 mg PO DIRECTED #21 package Is patient prescribed a controlled substance at d/c from ED?: No Referrals: Scot Neff MD [Primary Care Provider] - 1-2 days Time of Disposition: 21:49
[2018-05-09 21:59] VITALS: BP 115/62; PULSE 78; RESP 19
[2018-05-09 22:44] VITALS: TEMP 98.1
== END 2018-05-09 22:45 | disposition home or self-care (01) ==
LOC: EC 18:59
DX: J06.9 Acute upper respiratory infection, unspecified (principal); R05 Cough; Z87.891 Personal history of nicotine dependence
CPT/HCPCS: 71046; 87081; 87430; 99283

== ENCOUNTER → 2018-05-24 | Outpatient (CLI) | payer OTHER ==
--- NOTE | 2018-05-24 07:48 | US ---
EXAMINATION TYPE: US gallbladder DATE OF EXAM: 05/24/2018 COMPARISON: US 06/19/2014 CLINICAL HISTORY: R10.84 ABD PAIN. EXAM MEASUREMENTS: Liver Length: 13.6 cm Gallbladder Wall: 0.2 cm CBD: 0.3 cm Right Kidney: 9.7 x 3.4 x 3.8 cm Pancreas: Tail obscured by overlying bowel gas Liver: wnl Gallbladder: wnl Evidence for sonographic Phelan's sign: No CBD: wnl Right Kidney: No hydronephrosis or masses seen IMPRESSION: No distinct abnormality seen.
--- NOTE | 2018-05-24 08:52 | XR ---
EXAMINATION TYPE: XR abdomen 1V DATE OF EXAM: 05/24/2018 CLINICAL DATA: 22-year-old female with abdominal pain, [facility] COMPARISON: None FINDINGS: Lung bases are clear. No evidence for free intraperitoneal air. No dilated small bowel or air-fluid levels. Scattered air and stool seen throughout the colon extendi ng distally into the rectum. There is moderate stool in the rectum. No suspicious calcifications identified. A button projects at the midline pelvis. IMPRESSION: 1. The technologist indicates that the patient was unable to complete the exam; the patient was unabl e to drink the contrast material. 2.No evidence of bowel obstruction or free intraperitoneal air. 3. Moderate stool in the rectum.
== END | disposition home or self-care (01) ==
LOC: RADUSWWP 07:03
PROVIDERS: ATTEND Family Medicine
DX: R10.84 Generalized abdominal pain (principal)
CPT/HCPCS: 74018; 76705

== ENCOUNTER 2018-07-19 22:10 | Emergency (ER) | payer OTHER ==
[2018-07-19 23:56] VITALS: RESP 18
[2018-07-20] MEDS ORDERED: KETOROLAC 30 MG/ML 1 ML VIAL IM STA (00:54)
[2018-07-20] MEDS: ORPHENADRINE 30 MG/ML 2 ML VIAL IM STA ×2 (01:08→01:13)
[2018-07-20 02:07] VITALS: BP 91/54; PULSE 92
--- NOTE | 2018-07-20 02:29 | XR ---
EXAMINATION TYPE: XR chest 2V DATE OF EXAM: 07/20/2018 COMPARISON: 05/09/2018 HISTORY: Difficulty breathing TECHNIQUE: Frontal and lateral views of the chest are obtained. FINDINGS: Heart and mediastinum are normal. Lungs are clear. Diaphragm is normal. Bony thorax is int act. IMPRESSION: Normal chest. No change.
--- NOTE | 2018-07-20 02:44 | ED ---
General Adult HPI - General Chief complaint: Upper Respiratory Infection Stated complaint: hurts to breathe Time Seen by Provider: 07/19/18 23:52 Source: patient Mode of arrival: ambulatory Limitations: no limitations - History of Present Illness Initial comments: 23-year-old female patient percents to the emergency department today for complaints of bilateral rib pain. Patient states that she has had this pain for the last 2 days. Patient states she has had this before was diagnosed with muscle spasms in her chest. Patient states the pain started in her mid chest and then radiated down into her ribs. States it is now only in her bilateral lateral ribs. States that she is not having trouble breathing with this. States the pain does increase and never she moves her torso or takes a deep breath. She denies any cough or congestion. Denies any fevers or chills. States that she generally takes Flexeril when she gets this pain however did not help today. Patient denies any recent rash, abdominal pain, nausea, vomiting , diarrhea, constipation, numbness, tingling, dizziness, weakness, hematuria, dysuria, urinary urgency, urinary frequency, headache, visual changes, or any other complaints. - Related Data Home Medications Medication Instructions Recorded Confirmed Acetaminophen Tab [Tylenol Tab] 325 mg PO Q4H PRN 07/19/18 07/19/18 Cyclobenzaprine [Flexeril] 10 mg PO DIRECTED PRN 07/19/18 07/19/18 Previous Rx's Medication Instructions Recorded Ibuprofen [Motrin] 600 mg PO Q8HR PRN #30 tab 07/20/18 Allergies Allergy/AdvReac Type Severity Reaction Status Date / Time Latex, Natural Rubber Allergy Unknown Verified 07/19/18 23:35 Review of Systems ROS Statement: Those systems with pertinent positive or pertinent negative responses have been documented in the HPI. ROS Other: All systems not noted in ROS Statement are negative. Past Medical History Past Medical History: No Reported History Additional Past Medical History / Comment(s): muscle spasms around her heart, shingles History of Any Multi-Drug Resistant Organisms: None Reported Past Surgical History: Ear Surgery Additional Past Surgical History / Comment(s): tubes in ears Past Psychological History: ADD/ADHD Smoking Status: Former smoker Past Alcohol Use History: Occasional Past Drug Use History: None Reported General Exam Limitations: no limitations General appearance: alert, in no apparent distress, other (This is a well- developed, well-nourished adult female patient in no acute distress. Vital signs upon presentation are temperature 98.2F, pulse 110, respirations 20, blood pressure 99/51, pulse ox 97% on room air.) Eye exam: Present: normal appearance, PERRL, EOMI. Absent: scleral icterus, conjunctival injection, periorbital swelling ENT exam: Present: normal exam, normal oropharynx, mucous membranes moist, TM's normal bilaterally Neck exam: Present: normal inspection. Absent: tenderness, meningismus, lymphadenopathy Respiratory exam: Present: normal lung sounds bilaterally, chest wall tenderness (Patient has bilateral lateral rib tenderness. Patient has posterior chest wall tenderness.). Absent: respiratory distress, wheezes, rales , rhonchi, stridor Cardiovascular Exam: Present: regular rate, normal rhythm, normal heart sounds. Absent: systolic murmur, diastolic murmur, rubs, gallop, clicks GI/Abdominal exam: Present: soft, normal bowel sounds. Absent: distended, tenderness, guarding, rebound, rigid Neurological exam: Present: alert, oriented X3, CN II-XII intact Psychiatric exam: Present: normal affect, normal mood Skin exam: Present: warm, dry, intact, normal color. Absent: rash Course Vital Signs 07/19/18 07/19/18 07/20/18 22:32 23:55 02:07 Temperature 98.2 F Pulse Rate 110 H 92 Respiratory 20 18 18 Rate Blood Pressure 99/51 91/54 O2 Sat by Pulse 97 96 Oximetry 07/20/18 03:03 Temperature 98.8 F Pulse Rate Respiratory Rate Blood Pressure O2 Sat by Pulse Oximetry EKG Findings - EKG Comments: EKG Findings:: EKG obtained at 11 08 shows normal sinus rhythm with a ventricular rate of 82, TN interval 178, QRS duration 92, QT 392, QTc 457. No evidence of ST elevation or depression. Medical Decision Making - Medical Decision Making 23-year-old female patient presented to the emergency department today for complaints of bilateral rib pain. Physical examination did reveal bilateral lateral rib tenderness and posterior rib tenderness. Lung sounds are clear to auscultation with good air movement. Vital signs were within normal range with no evidence of fever. EKG showed normal sinus rhythm with no ectopy. Chest x- ray showed no acute cardiopulmonary process. Patient symptoms are consistent with costochondritis. Upon reevaluation and after administration of Toradol and Norflex patient did have improvement of symptoms. Patient did feel comfortable being discharged home to follow-up with her primary care physician. She'll be given a prescription for ibuprofen and has Flexeril at home that she will take. She is instructed to follow-up with her primary care physician for recheck in 1-2 days. Return parameters discussed in detail. She verbalizes understanding and agrees with this plan. - Radiology Data Radiology results: report reviewed, image reviewed Two-view x-ray of the chest is obtained. Heart mediastinum are normal. Lungs are clear. Diaphragm is normal. Bony thorax is intact. Impression by Dr. Mcdonald shows normal chest with no change. Disposition Clinical Impression: Costochondritis Disposition: HOME SELF-CARE Condition: Good Instructions: Costochondritis (ED) Additional Instructions: Take anti-inflammatory medication as directed. Apply ice or heat to the ribs for symptom relief. Rest, do not perform vigorous physical activity. Follow- up with your primary care physician for recheck in 1-2 days. Return here immediately for any new, worsening, or concerning symptoms per Prescriptions: Ibuprofen [Motrin] 600 mg PO Q8HR PRN #30 tab PRN Reason: Pain Is patient prescribed a controlled substance at d/c from ED?: No Referrals: Scot Neff MD [Primary Care Provider] - 1-2 days Time of Disposition: 02:44
[2018-07-20 03:04] VITALS: TEMP 98.8
== END 2018-07-20 03:04 | disposition home or self-care (01) ==
LOC: EC 22:10
DX: M94.0 Chondrocostal junction syndrome [Tietze] (principal); Z87.891 Personal history of nicotine dependence; Z91.040 Latex allergy status; Z53.29 Procedure and treatment not carried out because of patient's decision for other reasons
CPT/HCPCS: 71046; 93005; 96372; 99283

== ENCOUNTER 2018-11-01 20:00 | Emergency (ER) | payer OTHER ==
[2018-11-01 20:11] VITALS: BP 101/69; PULSE 90; RESP 18; TEMP 98.5
--- NOTE | 2018-11-01 20:38 | ED ---
General Adult HPI - General Chief complaint: Extremity Injury, Lower Stated complaint: Sharp pain in knee Time Seen by Provider: 11/01/18 20:11 Source: patient, RN notes reviewed, old records reviewed Mode of arrival: ambulatory Limitations: no limitations - History of Present Illness Initial comments: 23-year-old female patient no pertinent past history presents to ED with 1 day of right knee pain. Patient reports that she is active on a daily basis. Patient reports that the pain is at her lateral aspect of her right knee. Patient states that hurts with ambulation, activity. Patient denies any acute injury. Patient denies any other complaints. Systemic: Pt denies fatigue, fever/chills, rash. Pt denies weakness, night sweats, weight loss. Neuro: Pt denies headache, visual disturbances, syncope or pre-syncope. HEENT: Pt denies ocular discharge or irritation, otalgia, rhinorrhea, pharyngitis or notable lymphadenopathy. Cardiopulmonary: Pt denies chest pain, SOB, heart palpitations, dyspnea on exertion. Abdominal/GI: Pt denies abdominal pain, n/v/d. : Pt denies dysuria, burning w/ urination, frequency/urgency. Denies new onset urinary or bowel incontinence. MSK: Pt denies loss of strength or function in extremities. Neuro: Pt denies new onset weakness, paresthesias. - Related Data Home Medications Medication Instructions Recorded Confirmed Acetaminophen Tab [Tylenol Tab] 325 mg PO Q4H PRN 07/19/18 07/19/18 Cyclobenzaprine [Flexeril] 10 mg PO DIRECTED PRN 07/19/18 07/19/18 Previous Rx's Medication Instructions Recorded Ibuprofen [Motrin] 600 mg PO Q8HR PRN #30 tab 07/20/18 Allergies Allergy/AdvReac Type Severity Reaction Status Date / Time Latex, Natural Rubber Allergy Unknown Verified 11/01/18 20:11 Review of Systems ROS Statement: Those systems with pertinent positive or pertinent negative responses have been documented in the HPI. ROS Other: All systems not noted in ROS Statement are negative. Past Medical History Past Medical History: No Reported History Additional Past Medical History / Comment(s): muscle spasms around her heart, shingles History of Any Multi-Drug Resistant Organisms: None Reported Past Surgical History: Ear Surgery Additional Past Surgical History / Comment(s): tubes in ears Past Psychological History: ADD/ADHD Smoking Status: Former smoker Past Alcohol Use History: Occasional Past Drug Use History: None Reported General Exam - General Exam Comments Initial Comments: Constitutional: NAD, AOX3, Pt has pleasant affect. HEENT: NC/AT, trachea midline, neck supple, no lymphadenopathy. Posterior pharynx non erythematous, without exudates. External ears appear normal, without discharge. Mucous membranes moist. Eyes PERRLA, EOM intact. There is no scleral icterus. No pallor noted. Cardiopulmonary: RRR, no murmurs, rubs or gallops, no JVD noted. Lungs CTAB in anterior and posterior cloud. No peripheral edema. Abdominal exam: Abdomen soft and non-distended. Abdomen non-tender to palpation in all 4 quadrants. Bowel sounds active in LLQ. No hepatosplenomegaly. No ecchymosis Neuro: CN II-XII grossly intact. No nuchal rigidity. MSK: Lateral aspect of R knee mildly tender to palpation. Full active ROM of knee. No erythema, or warmth. Distal pulses intact and equal. No posterior calf tenderness bilaterally, homans sign negative bilaterally. Posterior tibialis and radial pulse +2 bilaterally. Sensation intact in upper and lower extremities. Full active ROM in upper and lower extremities, 5/5 stregnth. Limitations: no limitations Course Vital Signs 11/01/18 20:08 Temperature 98.5 F Pulse Rate 90 Respiratory 18 Rate Blood Pressure 101/69 O2 Sat by Pulse 94 L Oximetry Medical Decision Making - Medical Decision Making 23-year-old female patient no pertinent past history presents to ED with 1 day of right knee pain. Patient reports that she is active on a daily basis. Patient reports that the pain is at her lateral aspect of her right knee. Patient states that hurts with ambulation, activity. Patient denies any acute injury. Patient denies any other complaints. Pt VSS, afebrile. Physical exam displayed: Lateral aspect of R knee mildly tender to palpation. Full active ROM of knee. No erythema, or warmth. Distal pulses intact and equal. Plain film of knee displayed no acute process. Pt to take tylenol/motrin as needed for pain. Patient to follow up with primary care provider if symptoms continue, pt also provided an orthopedic consult if symptoms continue. Case discussed in depth with Dr. Tabor. Disposition Clinical Impression: Sprain of knee Disposition: HOME SELF-CARE Condition: Stable Instructions (If sedation given, give patient instructions): Knee Pain (ED) Additional Instructions: Patient to adhere to previously discussed treatment plan and will take medication(s) as directed. Patient to follow up with PCP in 1-2 days. Patient to return to ED if symptoms do not improve. Use [id number] Tylenol and Motrin as needed for pain. Follow up with primary care provider in 1-2 days if symptoms persist. Follow-up with orthopedic consult if symptoms persist. Return to ED if new signs or symptoms develop. Is patient prescribed a controlled substance at d/c from ED?: No Referrals: Tawny Metz MD [Primary Care Provider] - 1-2 days Dexter Orta DO [Medical Doctor] - 1-2 days Time of Disposition: 20:53
--- NOTE | 2018-11-01 20:42 | XR ---
EXAMINATION TYPE: XR knee 4V RT DATE OF EXAM: 11/01/2018 COMPARISON: NONE HISTORY: Knee pain TECHNIQUE: 4 views FINDINGS: I see no fracture nor dislocation. Joint spaces are normal. There is no sign of knee joint effusion. IMPRESSION: Negative right knee exam.
[2018-11-01] MEDS ORDERED: ACETAMINOPHEN TAB 325 MG TAB PO STA (20:50)
== END 2018-11-01 20:57 | disposition home or self-care (01) ==
LOC: EC 20:00
DX: S83.91XA Sprain of unspecified site of right knee, initial encounter (principal); Z87.891 Personal history of nicotine dependence; Z91.040 Latex allergy status; X58.XXXA Exposure to other specified factors, initial encounter
CPT/HCPCS: 99284

== ENCOUNTER 2019-08-23 10:05 | Emergency (ER) | payer OTHER ==
[2019-08-23 10:14] VITALS: TEMP 97.9
[2019-08-23] MEDS ORDERED: KETOROLAC 30 MG/ML 1 ML VIAL IVP STA (10:27)
[2019-08-23] MEDS ORDERED: SODIUM CHLORIDE 0.9% 1,000 ML IV STA (10:27)
[2019-08-23] MEDS ORDERED: PANTOPRAZOLE 40 MG/10 ML VIAL IVP STA (10:27)
--- NOTE | 2019-08-23 10:32 | ED ---
General Adult HPI - General Chief complaint: Nausea/Vomiting/Diarrhea Stated complaint: Stomach pain Time Seen by Provider: 08/23/19 10:14 Source: patient Mode of arrival: ambulatory Limitations: no limitations - History of Present Illness Initial comments: Patient is a 24-year-old female presenting to the emergency Department with complaints of chest pain started last night. Patient states she has a history of "muscle spasms of the chest" and tried taking a muscle relaxer last night. Patient states she was able to fall sleep but woke up this morning with the pain still there. Patient describes the pain as in the middle lower part of her chest and describes it as pressure. Patient states it does not radiate. Patient states she also tried Motrin which did not relieve her symptoms. Patient states she is also nauseous last night secondary to the pain. Patient denies nausea or vomiting this morning. Patient is a 1 month , non-c omplicated vaginal . Patient denies any history of heart disease. Patient denies recent fever, chills, diarrhea, abdominal pain. Patient has no other complaints at this time. Upon arrival to ER, vital signs are stable. - Related Data Home Medications Medication Instructions Recorded Confirmed Acetaminophen Tab [Tylenol Tab] 325 mg PO Q4H PRN 07/19/18 07/19/18 Previous Rx's Medication Instructions Recorded Ibuprofen [Motrin] 600 mg PO Q8HR PRN #30 tab 07/20/18 Cyclobenzaprine [Flexeril] 10 mg PO BID #10 tab 08/23/19 Allergies Allergy/AdvReac Type Severity Reaction Status Date / Time Latex, Natural Rubber Allergy Unknown Verified 08/23/19 10:10 Review of Systems ROS Statement: Those systems with pertinent positive or pertinent negative responses have been documented in the HPI. ROS Other: All systems not noted in ROS Statement are negative. Past Medical History Past Medical History: No Reported History Additional Past Medical History / Comment(s): muscle spasms around her heart, shingles History of Any Multi-Drug Resistant Organisms: None Reported Past Surgical History: Ear Surgery Additional Past Surgical History / Comment(s): tubes in ears Past Psychological History: ADD/ADHD Smoking Status: Former smoker Past Alcohol Use History: Occasional Past Drug Use History: None Reported General Exam - General Exam Comments Initial Comments: GENERAL: Well-appearing, well-nourished and in no acute distress, but appears uncomfortable. HEAD: Atraumatic, normocephalic. EYES: Pupils equal round and reactive to light, extraocular movements intact, sclera anicteric, conjunctiva are normal. ENT: TMs normal, nares patent, oropharynx clear without exudates. Moist mucous membranes. NECK: Normal range of motion, supple without lymphadenopathy or JVD. LUNGS: Breath sounds clear to auscultation bilaterally and equal. No wheezes rales or rhonchi. Mild discomfort with palpation of the distal end of the sternum. HEART: Regular rate and rhythm without murmurs, rubs or gallops. ABDOMEN: Soft, nontender, normoactive bowel sounds. No guarding, no rebound. No masses appreciated. : Deferred EXTREMITIES: Normal range of motion, no pitting or edema. No clubbing or cyanosis. NEUROLOGICAL: Cranial nerves II through XII grossly intact. Normal speech, normal gait. PSYCH: Normal mood, normal affect. SKIN: Warm, Dry, normal turgor, no rashes or lesions noted. Limitations: no limitations Course Vital Signs 08/23/19 08/23/19 08/23/19 10:10 12:06 12:35 Temperature 97.9 F 97.9 F Pulse Rate 89 62 62 Respiratory 16 18 18 Rate Blood Pressure 109/76 100/61 100/61 O2 Sat by Pulse 99 97 97 Oximetry EKG Findings - EKG Comments: EKG Findings:: Ventricular rate 54, P or interval 152, QTC 422. Sinus bradycardia with sinus arrhythmia. No acute ST segment changes. Compared to previous exam in June 2018. Medical Decision Making - Medical Decision Making Patient is a 24-year-old female presenting with middle lower chest pain, pressure since last night. Patient has history of muscle spasms she states. Vital signs are stable. Lab work is unremarkable today including normal troponin, normal d-dimer, and normal coags. EKG is normal, no acute changes. Chest x-ray shows no acute changes. Patient was given fluids, Toradol, Protonix and states she has no pain at this time is requesting to go home. Patient will follow-up with PCP next week. Patient is stable for discharge at this time. Return parameters were discussed with the patient she verbalized understanding. Case discussed with Dr. Castillo. - Lab Data Result diagrams: 08/23/19 10:58 11/29/19 10:58 Lab Results 08/23/19 08/23/19 08/23/19 Range/Units 10:58 10:58 10:58 WBC 4.1 (3.8-10.6) k/uL RBC 4.88 (3.80-5.40) m/uL Hgb 12.2 (11.4-16.0) gm/dL Hct 38.3 (34.0-46.0) % MCV 78.4 L (80.0-100.0) fL MCH 25.0 (25.0-35.0) pg MCHC 31.9 (31.0-37.0) g/dL RDW 15.0 (11.5-15.5) % Plt Count 273 (150-450) k/uL Neutrophils % 66 % Lymphocytes % 22 % Monocytes % 6 % Eosinophils % 2 % Basophils % 0 % Neutrophils # 2.7 (1.3-7.7) k/uL Lymphocytes # 0.9 L (1.0-4.8) k/uL Monocytes # 0.3 (0-1.0) k/uL Eosinophils # 0.1 (0-0.7) k/uL Basophils # 0.0 (0-0.2) k/uL PT 10.2 (9.0-12.0) sec INR 0.9 (<1.2) APTT 26.6 (22.0-30.0) sec D-Dimer 0.57 (<0.60) mg/L FEU Sodium 140 (137-145) mmol/L Potassium 4.2 (3.5-5.1) mmol/L Chloride 108 H (98-107) mmol/L Carbon Dioxide 22 (22-30) mmol/L Anion Gap 10 mmol/L BUN 10 (7-17) mg/dL Creatinine 0.76 (0.52-1.04) mg/dL Est GFR (CKD-EPI)AfAm >90 (>60 ml/min/1.73 sqM) Est GFR (CKD-EPI)NonAf >90 (>60 ml/min/1.73 sqM) Glucose 85 (74-99) mg/dL Calcium 9.7 (8.4-10.2) mg/dL Total Bilirubin 1.1 (0.2-1.3) mg/dL AST 22 (14-36) U/L ALT 19 (9-52) U/L Alkaline Phosphatase 64 (38-126) U/L Troponin I (0.000-0.034) ng/mL Total Protein 7.2 (6.3-8.2) g/dL Albumin 4.4 (3.5-5.0) g/dL Amylase 48 (30-110) U/L Lipase 69 (23-300) U/L Urine Color Urine Appearance (Clear) Urine pH (5.0-8.0) Ur Specific [place] (1.001-1.035) Urine Protein (Negative) Urine Glucose (UA) (Negative) Urine Ketones (Negative) Urine Blood (Negative) Urine Nitrite (Negative) Urine Bilirubin (Negative) Urine Urobilinogen (<2.0) mg/dL Ur Leukocyte Esterase (Negative) Urine RBC (0-5) /hpf Urine WBC (0-5) /hpf Ur Squamous Epith Cells (0-4) /hpf Urine Bacteria (None) /hpf Urine Mucus (None) /hpf 08/23/19 08/23/19 Range/Units 10:58 10:58 WBC (3.8-10.6) k/uL RBC (3.80-5.40) m/uL Hgb (11.4-16.0) gm/dL Hct (34.0-46.0) % MCV (80.0-100.0) fL MCH (25.0-35.0) pg MCHC (31.0-37.0) g/dL RDW (11.5-15.5) % Plt Count (150-450) k/uL Neutrophils % % Lymphocytes % % Monocytes % % Eosinophils % % Basophils % % Neutrophils # (1.3-7.7) k/uL Lymphocytes # (1.0-4.8) k/uL Monocytes # (0-1.0) k/uL Eosinophils # (0-0.7) k/uL Basophils # (0-0.2) k/uL PT (9.0-12.0) sec INR (<1.2) APTT (22.0-30.0) sec D-Dimer (<0.60) mg/L FEU Sodium (137-145) mmol/L Potassium (3.5-5.1) mmol/L Chloride (98-107) mmol/L Carbon Dioxide (22-30) mmol/L Anion Gap mmol/L BUN (7-17) mg/dL Creatinine (0.52-1.04) mg/dL Est GFR (CKD-EPI)AfAm (>60 ml/min/1.73 sqM) Est GFR (CKD-EPI)NonAf (>60 ml/min/1.73 sqM) Glucose (74-99) mg/dL Calcium (8.4-10.2) mg/dL Total Bilirubin (0.2-1.3) mg/dL AST (14-36) U/L ALT (9-52) U/L Alkaline Phosphatase (38-126) U/L Troponin I <0.012 (0.000-0.034) ng/mL Total Protein (6.3-8.2) g/dL Albumin (3.5-5.0) g/dL Amylase (30-110) U/L Lipase (23-300) U/L Urine Color Yellow Urine Appearance Clear (Clear) Urine pH 6.0 (5.0-8.0) Ur Specific [place] 1.015 (1.001-1.035) Urine Protein Negative (Negative) Urine Glucose (UA) Negative (Negative) Urine Ketones Negative (Negative) Urine Blood Negative (Negative) Urine Nitrite Negative (Negative) Urine Bilirubin Negative (Negative) Urine Urobilinogen <2.0 (<2.0) mg/dL Ur Leukocyte Esterase Moderate H (Negative) Urine RBC 1 (0-5) /hpf Urine WBC 3 (0-5) /hpf Ur Squamous Epith Cells 6 H (0-4) /hpf Urine Bacteria Rare H (None) /hpf Urine Mucus Rare H (None) /hpf Disposition Clinical Impression: Atypical chest pain Disposition: HOME SELF-CARE Condition: Stable Instructions (If sedation given, give patient instructions): Muscle Spasm (ED) Additional Instructions: Please return to the Emergency Department if symptoms worsen or any other concerns. Continue with anti-inflammatory. Follow-up with PCP in 1- 3 days. Prescriptions: Cyclobenzaprine [Flexeril] 10 mg PO BID #10 tab Is patient prescribed a controlled substance at d/c from ED?: No Referrals: Tawny Metz MD [Primary Care Provider] - 1-2 days
[2019-08-23 11:18] LABS: Basophils % (A) 0 %; Eosinophils # (A) 0.1 k/uL (0-0.7); Eosinophils % (A) 2 %; HCT 38.3 % (34.0-46.0); HGB 12.2 gm/dL (11.4-16.0); Lymphocytes # (A) 0.9 k/uL (1.0-4.8); Lymphocytes % (A) 22 %; MCHC 31.9 g/dL (31.0-37.0); MCV 78.4 fL (80.0-100.0); Mean Platelet Volume 6.9; Monocytes # (A) 0.3 k/uL (0-1.0); Monocytes % (A) 6 %; Neutrophils # (A) 2.7 k/uL (1.3-7.7); Neutrophils % (A) 66 %; Platelet Count 273 k/uL (150-450); RBC 4.88 m/uL (3.80-5.40); WBC 4.1 k/uL (3.8-10.6)
--- NOTE | 2019-08-23 11:18 | XR ---
EXAMINATION TYPE: XR chest 2V DATE OF EXAM: 08/23/2019 COMPARISON: 07/20/2018 HISTORY: Chest pain TECHNIQUE: Frontal and lateral views of the chest are obtained. FINDINGS: There is no focal air space opacity. No evidence for pneumothorax. No pleural effusion. The cardiac silhouette size is within normal limits. The osseous structures are grossly intact. IMPRESSION: 1. No acute cardiopulmonary process.
[2019-08-23 11:24] LABS: Appearance,Urine Clear (Clear); Bacteria,Urine Rare /hpf; Bilirubin,Urine Negative (Negative); Blood,Urine Negative (Negative); Color,Urine Yellow; Glucose,Urine (UA) Negative (Negative); Ketones,Urine Negative (Negative); Leukocyte Esterase,Urine Moderate (Negative); Mucus,Urine Rare /hpf; Nitrite,Urine Negative (Negative); Protein,Urine Negative (Negative); RBC,Urine 1 /hpf (0-5); Specific Gravity,Urine 1.015 (1.001-1.035); Squamous Epithelial Cell,Urine 6 /hpf (0-4); Urobilinogen,Urine <2.0 mg/dL (<2.0)
[2019-08-23 11:27] LABS: ALT 19 U/L (9-52); AST 22 U/L (14-36); African American GFR (CKD) >90 (>60 ml/min/1.73 sqM); Albumin 4.4 g/dL (3.5-5.0); Alkaline Phosphatase 64 U/L (38-126); Amylase 48 U/L (30-110); Anion Gap 10 mmol/L; Blood Urea Nitrogen 10 mg/dL (7-17); Calcium 9.7 mg/dL (8.4-10.2); Carbon Dioxide 22 mmol/L (22-30); Chloride 108 mmol/L (98-107); Glucose 85 mg/dL (74-99); Non-African American GFR(CKD) >90 (>60 ml/min/1.73 sqM); Potassium 4.2 mmol/L (3.5-5.1); Sodium 140 mmol/L (137-145); Total Bilirubin 1.1 mg/dL (0.2-1.3); Total Protein 7.2 g/dL (6.3-8.2)
[2019-08-23 11:40] LABS: D-Dimer 0.57 mg/L FEU (<0.60); INR 0.9 (<1.2); Partial Thromboplastin Time 26.6 sec (22.0-30.0); Prothrombin Time 10.2 sec (9.0-12.0)
[2019-08-23 12:07] VITALS: BP 100/61; PULSE 62; RESP 18
== END 2019-08-23 12:42 | disposition home or self-care (01) ==
LOC: EC 10:05
DX: R07.89 Other chest pain (principal); M62.838 Other muscle spasm; Z91.040 Latex allergy status; Z87.891 Personal history of nicotine dependence
CPT/HCPCS: 36415; 71046; 80053; 81001; 82150; 83690; 84484; 85025; 85379; 85610; 85730; 93005; 96361; 96374; 96375; 99284

== ENCOUNTER → 2020-12-24 | Outpatient (CLI) | payer OTHER | END | disposition home or self-care (01) | LOC: LABWHC1 15:54 | PROVIDERS: ATTEND Family Medicine | DX: U07.1 COVID-19 (principal) | CPT/HCPCS: U0003; C9803; U0005 ==

== ENCOUNTER 2021-05-05 18:20 | Emergency (ER) | payer OTHER ==
[2021-05-05 18:29] VITALS: BP 99/65; PULSE 92; RESP 18; TEMP 98.4
--- NOTE | 2021-05-05 19:45 | ED ---
Back Pain HPI - General Chief Complaint: Back Pain/Injury Stated Complaint: back pain Time Seen by Provider: 05/05/21 18:30 Source: patient, RN notes reviewed Limitations: no limitations - History of Present Illness Initial Comments: Patient is a 25-year-old female that presents to emergency room complaining of lower back pain for the past month. She notes that she followed up with her primary care who told her to take Motrin for 3 weeks. Patient denied any injury trauma bending twisting weird while lifting. She was a well-appearing 25-year-old female distress or pain. She notes that she has no idea what she did. She was sitting up this comfortable but when she walks and moves around he gets worse. She denied any radicular symptoms. She denied any chest pain shor tness of breath headache nausea vomiting diarrhea constipation fever fatigue chills. - Related Data Home Medications Medication Instructions Recorded Confirmed Nitrofurantoin Monohyd/M-Cryst 100 mg PO Q12HR 05/05/21 05/05/21 [Macrobid] medroxyPROGESTERone [Depo-Provera] 150 mg IM Q84D 05/05/21 05/05/21 Previous Rx's Medication Instructions Recorded predniSONE 50 mg PO DAILY #5 tab 05/05/21 Allergies Allergy/AdvReac Type Severity Reaction Status Date / Time Latex, Natural Rubber Allergy Unknown Verified 05/05/21 19:42 Review of Systems ROS Statement: Those systems with pertinent positive or pertinent negative responses have been documented in the HPI. ROS Other: All systems not noted in ROS Statement are negative. Past Medical History Past Medical History: No Reported History Additional Past Medical History / Comment(s): muscle spasms around her heart, shingles History of Any Multi-Drug Resistant Organisms: None Reported Past Surgical History: Ear Surgery Additional Past Surgical History / Comment(s): tubes in ears Past Psychological History: ADD/ADHD Past Alcohol Use History: Occasional Past Drug Use History: None Reported General Exam Limitations: no limitations General appearance: alert, in no apparent distress Head exam: Present: atraumatic, normocephalic, normal inspection Eye exam: Present: normal appearance, PERRL, EOMI. Absent: scleral icterus, conjunctival injection, periorbital swelling Neck exam: Present: normal inspection Respiratory exam: Present: normal lung sounds bilaterally. Absent: respiratory distress, wheezes, rales, rhonchi, stridor Cardiovascular Exam: Present: regular rate, normal rhythm, normal heart sounds. Absent: systolic murmur, diastolic murmur, rubs, gallop, clicks GI/Abdominal exam: Present: soft, normal bowel sounds. Absent: distended, tenderness, guarding, rebound, rigid Extremities exam: Present: normal inspection, full ROM, normal capillary refill. Absent: tenderness, pedal edema, joint swelling, calf tenderness Back exam: Present: normal inspection, tenderness (Over the right SI) Neurological exam: Present: alert, oriented X3 Psychiatric exam: Present: normal affect, normal mood Skin exam: Present: warm, dry, intact, normal color. Absent: rash Course Vital Signs 05/05/21 18:26 Temperature 98.4 F Pulse Rate 92 Respiratory 18 Rate Blood Pressure 99/65 O2 Sat by Pulse 99 Oximetry Medical Decision Making - Medical Decision Making 25-year-old female complaining of low back pain for the past month. X-ray of the lumbar spine ordered. Patient was offered pain medication but declined at this time due to not liking shots. She stated that she was okay at the time being and would ask if she changed her mind. Case discussed with Dr. Mallory, patient can discharge home with follow-up to primary care. - Radiology Data Radiology results: report reviewed, image reviewed X-ray lumbar spine: Mild L5-S1 spondylosis with possible grade 1 retrolisthesis. No acute osseous emboli. Disposition Clinical Impression: Sciatica Disposition: HOME SELF-CARE Condition: Stable Instructions (If sedation given, give patient instructions): Acute Low Back Pain (ED) Additional Instructions: Please return to the Emergency Department if symptoms worsen or any other concerns. Follow-up primary care in the next 1-2 days. Take steroids as prescribed. Avoid any strenuous activity or exercise P Is patient prescribed a controlled substance at d/c from ED?: No Referrals: Scot Neff MD [Primary Care Provider] - 1-2 days Time of Disposition: 20:20
--- NOTE | 2021-05-05 19:52 | XR ---
Result: History: Right lower back pain/sciatica. Comparison: None available. Technique: 3 views of the lumbar spine. Findings: The bone mineralization is normal. Images of the lumbar spine demonstrate 5 lumbar-type vertebrae. There is no acute fracture. The navneet tebral body heights are preserved throughout the imaged lumbar spine. There is mild disc height narro wing at L5-S1. There is possible mild grade 1 retrolisthesis of L5 on S1. The remaining disc heights are maintained. Impression: Mild L5-S1 spondylosis with possible grade 1 retrolisthesis. No acute osseous abnormality.
== END 2021-05-05 20:25 | disposition home or self-care (01) ==
LOC: EC 18:20
DX: M54.41 Lumbago with sciatica, right side (principal); F90.9 Attention-deficit hyperactivity disorder, unspecified type; Z91.040 Latex allergy status
CPT/HCPCS: 72100; 99283

== ENCOUNTER 2021-05-12 10:19 | Emergency (ER) | payer OTHER ==
[2021-05-12 10:26] VITALS: TEMP 98.3
[2021-05-12] MEDS ORDERED: KETOROLAC 15 MG/ML 1 ML VIAL IM STA (10:41)
--- NOTE | 2021-05-12 11:15 | XR ---
EXAMINATION TYPE: XR lumbar spine 2 or 3V DATE OF EXAM: 05/12/2021 CLINICAL HISTORY: Low back pain. TECHNIQUE: Frontal and lateral images of the lumbar spine are obtained. COMPARISON: Lumbar spine x-ray one week ago. FINDINGS: There are 5 lumbar type vertebral bodies redemonstrated. The lumbar spine shows stable an d satisfactory alignment without evidence of acute fracture or dislocation. Vertebral body heights an d disk space heights remain stable and within normal limits. The overlying soft tissue appears unrema rkable. IMPRESSION: Unremarkable study. No significant change from prior.
--- NOTE | 2021-05-12 11:41 | ED ---
Back Pain HPI - General Chief Complaint: Back Pain/Injury Stated Complaint: pain all over/revisit Time Seen by Provider: 05/12/21 10:27 Source: patient, RN notes reviewed Limitations: no limitations - History of Present Illness Initial Comments: Patient is a 25-year-old female that presents to the emergency room complaining of bilateral lower back pain. She was seen several days ago for the same issue. She notes that she is not follow-up with her primary care as instructed and the pain has continued. She was informed that she has sciatica and needs to follow- up with primary care. She notes that she is getting radicular symptoms down her legs just like previous. She was otherwise a healthy-appearing 25 she'll female. She denied any chest pain first breath headache nausea vomiting diarrhea constipation fever fatigue chills. - Related Data Home Medications Medication Instructions Recorded Confirmed medroxyPROGESTERone [Depo-Provera] 150 mg IM Q84D 05/05/21 05/12/21 Allergies Allergy/AdvReac Type Severity Reaction Status Date / Time Latex, Natural Rubber Allergy Unknown Verified 05/12/21 11:18 Review of Systems ROS Statement: Those systems with pertinent positive or pertinent negative responses have been documented in the HPI. ROS Other: All systems not noted in ROS Statement are negative. Past Medical History Past Medical History: No Reported History Additional Past Medical History / Comment(s): muscle spasms around her heart, shingles History of Any Multi-Drug Resistant Organisms: None Reported Past Surgical History: Ear Surgery Additional Past Surgical History / Comment(s): tubes in ears Past Psychological History: ADD/ADHD Smoking Status: Never smoker Past Alcohol Use History: Occasional Past Drug Use History: None Reported General Exam Limitations: no limitations General appearance: alert, in no apparent distress Head exam: Present: atraumatic, normocephalic, normal inspection Eye exam: Present: normal appearance, PERRL, EOMI. Absent: scleral icterus, conjunctival injection, periorbital swelling Neck exam: Present: normal inspection Respiratory exam: Present: normal lung sounds bilaterally. Absent: respiratory distress, wheezes, rales, rhonchi, stridor Cardiovascular Exam: Present: regular rate, normal rhythm, normal heart sounds. Absent: systolic murmur, diastolic murmur, rubs, gallop, clicks GI/Abdominal exam: Present: soft, normal bowel sounds. Absent: distended, tenderness, guarding, rebound, rigid Extremities exam: Present: normal inspection, full ROM, normal capillary refill. Absent: tenderness, pedal edema, joint swelling, calf tenderness Back exam: Present: normal inspection, tenderness (Bilateral SI) Neurological exam: Present: alert, oriented X3 Psychiatric exam: Present: normal affect, normal mood Skin exam: Present: warm, dry, intact, normal color. Absent: rash Course Vital Signs 05/12/21 10:21 Temperature 98.3 F Pulse Rate 73 Respiratory 18 Rate Blood Pressure 103/61 O2 Sat by Pulse 96 Oximetry Medical Decision Making - Medical Decision Making 25-year-old female complaining of sciatica-type pain. X-ray of the lumbar spine, 15 mg of Toradol ordered. X-ray imaging negative for any acute change no change from prior. Case discussed with Dr. Dominguez, patient can discharge home. - Radiology Data Radiology results: report reviewed, image reviewed X-ray lumbar spine: unremarkable study. No change from prior. Disposition Clinical Impression: Sciatica, Strain of lumbar region Disposition: HOME SELF-CARE Condition: Stable Instructions (If sedation given, give patient instructions): Acute Low Back Pain (ED) Additional Instructions: Please return to the Emergency Department if symptoms worsen or any other concerns. Follow-up with primary care, get referral for physical therapy as needed. Take at home Motrin and Tylenol. Is patient prescribed a controlled substance at d/c from ED?: No Referrals: Scot Neff MD [Primary Care Provider] - 1-2 days Time of Disposition: 11:40
[2021-05-12 12:07] VITALS: BP 106/74; PULSE 75; RESP 20
== END 2021-05-12 12:07 | disposition home or self-care (01) ==
LOC: EC 10:19
DX: S39.012A Strain of muscle, fascia and tendon of lower back, initial encounter (principal); M54.41 Lumbago with sciatica, right side; M54.42 Lumbago with sciatica, left side; X58.XXXA Exposure to other specified factors, initial encounter
CPT/HCPCS: 72100; 96372; 99283; J1885

== ENCOUNTER 2021-11-11 04:02 | Emergency (ER) | payer OTHER ==
[2021-11-11 04:18] VITALS: RESP 18; TEMP 98
[2021-11-11] MEDS ORDERED: MORPHINE SULFATE 4 MG/ML SYRINGE IV STA (04:28)
[2021-11-11] MEDS ORDERED: ONDANSETRON 4 MG/2 ML VIAL IVP STA (04:28)
[2021-11-11] MEDS ORDERED: SODIUM CHLORIDE 0.9% 1,000 ML IV ONE (04:28)
[2021-11-11 05:00] LABS: Basophils % (A) 1 %; Eosinophils # (A) 0.2 k/uL (0-0.7); Eosinophils % (A) 4 %; HCT 38.8 % (34.0-46.0); HGB 12.9 gm/dL (11.4-16.0); Lymphocytes # (A) 1.2 k/uL (1.0-4.8); Lymphocytes % (A) 24 %; MCHC 33.2 g/dL (31.0-37.0); MCV 90.3 fL (80.0-100.0); Mean Platelet Volume 7.5; Monocytes # (A) 0.3 k/uL (0-1.0); Monocytes % (A) 7 %; Neutrophils % (A) 62 %; Platelet Count 249 k/uL (150-450); RBC 4.29 m/uL (3.80-5.40); RDW 12.5 % (11.5-15.5); WBC 4.8 k/uL (3.8-10.6)
[2021-11-11 05:11] LABS: ALT 17 U/L (4-34); AST 32 U/L (14-36); African American GFR (CKD) >90 (>60 ml/min/1.73 sqM); Albumin 4.5 g/dL (3.5-5.0); Alkaline Phosphatase 61 U/L (38-126); Amylase 50 U/L (30-110); Anion Gap 11 mmol/L; Blood Urea Nitrogen 11 mg/dL (7-17); Calcium 9.7 mg/dL (8.4-10.2); Carbon Dioxide 20 mmol/L (22-30); Chloride 106 mmol/L (98-107); Glucose 97 mg/dL (74-99); Lipase 125 U/L (23-300); Non-African American GFR(CKD) >90 (>60 ml/min/1.73 sqM); Sodium 137 mmol/L (137-145); Total Protein 7.3 g/dL (6.3-8.2)
[2021-11-11 05:14] LABS: Appearance,Urine Clear (Clear); Bacteria,Urine Rare /hpf; Bilirubin,Urine Negative (Negative); Blood,Urine Negative (Negative); Color,Urine Light Yellow; Glucose,Urine (UA) Negative (Negative); Ketones,Urine Negative (Negative); Leukocyte Esterase,Urine Large (Negative); Nitrite,Urine Negative (Negative); PH, Urine 6.5 (5.0-8.0); Protein,Urine Negative (Negative); RBC,Urine <1 /hpf (0-5); Specific Gravity,Urine 1.009 (1.001-1.035); Squamous Epithelial Cell,Urine 2 /hpf (0-4); Urobilinogen,Urine <2.0 mg/dL (<2.0); WBC,Urine 5 /hpf (0-5)
--- NOTE | 2021-11-11 05:28 | XR ---
EXAMINATION TYPE: XR chest 1V portable DATE OF EXAM: 11/11/2021 COMPARISON: 08/23/2019 HISTORY: Weakness TECHNIQUE: Single view FINDINGS: Heart and mediastinum are normal. Lungs are clear. Diaphragm is normal. Bony thorax appears normal. IMPRESSION: Normal chest. No change.
[2021-11-11 05:35] LABS: Potassium 4.5 mmol/L (3.5-5.1)
--- NOTE | 2021-11-11 06:17 | ED ---
Abdominal Pain HPI - General Chief Complaint: Abdominal Pain Stated Complaint: Muscle pain Time Seen by Provider: 11/11/21 04:08 Source: patient Mode of arrival: ambulatory - History of Present Illness Initial Comments: This patient is a 26-year-old woman who presents to be evaluated for epigastric/substernal pain. She states that it had come on while she was watching television. She had just finished a glass of milk and had chips and then sunflower seeds. The patient states pain is aching. It seems to radiate along the costal margin bilaterally. She also has had some nausea no vomiting. No diaphoresis or dyspnea. She has not noted worsening or relieving factors. MD Complaint: abdominal pain -: hour(s) Location: epigastric Radiation: none Severity: severe Quality: aching Consistency: constant Improves With: nothing Worsens With: nothing Associated Symptoms: nausea - Related Data Home Medications Medication Instructions Recorded Confirmed medroxyPROGESTERone [Depo-Provera] 150 mg IM Q84D 05/05/21 05/12/21 Allergies Allergy/AdvReac Type Severity Reaction Status Date / Time Latex, Natural Rubber Allergy Unknown Verified 05/12/21 11:18 Review of Systems ROS Statement: Those systems with pertinent positive or pertinent negative responses have been documented in the HPI. ROS Other: All systems not noted in ROS Statement are negative. Constitutional: Denies: fever, chills Respiratory: Denies: cough, dyspnea Cardiovascular: Denies: chest pain, palpitations, edema, syncope Gastrointestinal: Reports: abdominal pain, nausea. Denies: vomiting, diarrhea, melena, hematochezia Genitourinary: Denies: dysuria, hematuria Musculoskeletal: Denies: back pain Skin: Denies: rash Neurological: Denies: headache Past Medical History Past Medical History: No Reported History Additional Past Medical History / Comment(s): muscle spasms, shingles History of Any Multi-Drug Resistant Organisms: None Reported Past Surgical History: Ear Surgery Additional Past Surgical History / Comment(s): tubes in ears Past Psychological History: ADD/ADHD Smoking Status: Never smoker Past Alcohol Use History: Occasional Past Drug Use History: None Reported General Exam General appearance: alert, in no apparent distress Head exam: Present: atraumatic, normocephalic Eye exam: Present: normal appearance. Absent: scleral icterus, conjunctival injection Neck exam: Present: normal inspection Respiratory exam: Present: normal lung sounds bilaterally. Absent: respiratory distress, wheezes, rales, rhonchi, stridor Cardiovascular Exam: Present: regular rate, normal rhythm, normal heart sounds. Absent: systolic murmur, diastolic murmur, rubs, gallop GI/Abdominal exam: Present: soft, tenderness (There is mild right upper quadrant tenderness. No rebound or guarding). Absent: distended, guarding, rebound, rigid, organomegaly, pulsatile mass, hernia Extremities exam: Present: normal inspection, normal capillary refill. Absent: pedal edema, calf tenderness Back exam: Present: normal inspection. Absent: CVA tenderness (R), CVA tenderness (L) Neurological exam: Present: alert Skin exam: Present: warm, dry, intact, normal color. Absent: rash Course Vital Signs 11/11/21 04:10 Temperature 98 F Pulse Rate 78 Respiratory 18 Rate Blood Pressure 111/71 O2 Sat by Pulse 98 Oximetry Medical Decision Making - Lab Data Result diagrams: 11/11/21 04:53 11/11/21 04:53 Lab Results 11/11/21 11/11/21 11/11/21 Range/Units 04:53 04:53 04:53 WBC 4.8 (3.8-10.6) k/uL RBC 4.29 (3.80-5.40) m/uL Hgb 12.9 (11.4-16.0) gm/dL Hct 38.8 (34.0-46.0) % MCV 90.3 (80.0-100.0) fL MCH 30.0 (25.0-35.0) pg MCHC 33.2 (31.0-37.0) g/dL RDW 12.5 (11.5-15.5) % Plt Count 249 (150-450) k/uL MPV 7.5 Neutrophils % 62 % Lymphocytes % 24 % Monocytes % 7 % Eosinophils % 4 % Basophils % 1 % Neutrophils # 3.0 (1.3-7.7) k/uL Lymphocytes # 1.2 (1.0-4.8) k/uL Monocytes # 0.3 (0-1.0) k/uL Eosinophils # 0.2 (0-0.7) k/uL Basophils # 0.0 (0-0.2) k/uL Sodium (137-145) mmol/L Potassium (3.5-5.1) mmol/L Chloride (98-107) mmol/L Carbon Dioxide (22-30) mmol/L Anion Gap mmol/L BUN (7-17) mg/dL Creatinine (0.52-1.04) mg/dL Est GFR (CKD-EPI)AfAm (>60 ml/min/1.73 sqM) Est GFR (CKD-EPI)NonAf (>60 ml/min/1.73 sqM) Glucose (74-99) mg/dL Calcium (8.4-10.2) mg/dL Total Bilirubin (0.2-1.3) mg/dL AST (14-36) U/L ALT (4-34) U/L Alkaline Phosphatase (38-126) U/L Troponin I (0.000-0.034) ng/mL Total Protein (6.3-8.2) g/dL Albumin (3.5-5.0) g/dL Amylase (30-110) U/L Lipase (23-300) U/L Urine Color Light Yellow Urine Appearance Clear (Clear) Urine pH 6.5 (5.0-8.0) Ur Specific [place] 1.009 (1.001-1.035) Urine Protein Negative (Negative) Urine Glucose (UA) Negative (Negative) Urine Ketones Negative (Negative) Urine Blood Negative (Negative) Urine Nitrite Negative (Negative) Urine Bilirubin Negative (Negative) Urine Urobilinogen <2.0 (<2.0) mg/dL Ur Leukocyte Esterase Large H (Negative) Urine RBC <1 (0-5) /hpf Urine WBC 5 (0-5) /hpf Ur Squamous Epith Cells 2 (0-4) /hpf Urine Bacteria Rare H (None) /hpf Urine HCG, Qual Not Detected (Not Detectd) 11/11/21 11/11/21 Range/Units 04:53 04:53 WBC (3.8-10.6) k/uL RBC (3.80-5.40) m/uL Hgb (11.4-16.0) gm/dL Hct (34.0-46.0) % MCV (80.0-100.0) fL MCH (25.0-35.0) pg MCHC (31.0-37.0) g/dL RDW (11.5-15.5) % Plt Count (150-450) k/uL MPV Neutrophils % % Lymphocytes % % Monocytes % % Eosinophils % % Basophils % % Neutrophils # (1.3-7.7) k/uL Lymphocytes # (1.0-4.8) k/uL Monocytes # (0-1.0) k/uL Eosinophils # (0-0.7) k/uL Basophils # (0-0.2) k/uL Sodium 137 (137-145) mmol/L Potassium 4.5 (3.5-5.1) mmol/L Chloride 106 (98-107) mmol/L Carbon Dioxide 20 L (22-30) mmol/L Anion Gap 11 mmol/L BUN 11 (7-17) mg/dL Creatinine 0.71 (0.52-1.04) mg/dL Est GFR (CKD-EPI)AfAm >90 (>60 ml/min/1.73 sqM) Est GFR (CKD-EPI)NonAf >90 (>60 ml/min/1.73 sqM) Glucose 97 (74-99) mg/dL Calcium 9.7 (8.4-10.2) mg/dL Total Bilirubin 1.0 (0.2-1.3) mg/dL AST 32 (14-36) U/L ALT 17 (4-34) U/L Alkaline Phosphatase 61 (38-126) U/L Troponin I 0.016 (0.000-0.034) ng/mL Total Protein 7.3 (6.3-8.2) g/dL Albumin 4.5 (3.5-5.0) g/dL Amylase 50 (30-110) U/L Lipase 125 (23-300) U/L Urine Color Urine Appearance (Clear) Urine pH (5.0-8.0) Ur Specific [place] (1.001-1.035) Urine Protein (Negative) Urine Glucose (UA) (Negative) Urine Ketones (Negative) Urine Blood (Negative) Urine Nitrite (Negative) Urine Bilirubin (Negative) Urine Urobilinogen (<2.0) mg/dL Ur Leukocyte Esterase (Negative) Urine RBC (0-5) /hpf Urine WBC (0-5) /hpf Ur Squamous Epith Cells (0-4) /hpf Urine Bacteria (None) /hpf Urine HCG, Qual (Not Detectd) Disposition Clinical Impression: Abdominal pain Disposition: HOME SELF-CARE Condition: Good Instructions (If sedation given, give patient instructions): Biliary Colic (ED), Abdominal Pain (ED) Is patient prescribed a controlled substance at d/c from ED?: No Referrals: Scot Neff MD [Primary Care Provider] - 1-[address] MD [STAFF PHYSICIAN] - 1-2 days
[2021-11-11 06:29] VITALS: BP 110/69; PULSE 80
== END 2021-11-11 06:29 | disposition home or self-care (01) ==
LOC: EC 04:02
DX: R10.13 Epigastric pain (principal); F90.9 Attention-deficit hyperactivity disorder, unspecified type; Z91.040 Latex allergy status
CPT/HCPCS: 99284; 96374; 96375; 36415; 80053; 82150; 83690; 84484; 85025; 81001; 81025; 71045; J2270; J2405

== ENCOUNTER 2023-04-07 20:21 | Emergency (ER) | payer OTHER ==
[2023-04-07] MEDS ORDERED: ACETAMINOPHEN TAB 325 MG TAB PO STA (20:42)
[2023-04-07 20:43] VITALS: TEMP 98
--- NOTE | 2023-04-07 21:27 | ED ---
General Adult HPI - General Chief complaint: Fall Stated complaint: Fall Time Seen by Provider: 04/07/23 20:24 Source: patient, RN notes reviewed Mode of arrival: EMS Limitations: no limitations - History of Present Illness Initial comments: 27-year-old female presents to the emergency department chief complaint of mechanical fall. Patient states she was walking up the stairs when she tripped and fell backwards down 2-3 stairs and landed on her right side. She reports pain in her right-sided ribs, hip and radiates to her mid section. She reports some associated lower belly cramping. She states that she is around 15 weeks . Last menstrual period [id number]. She denies any vaginal bleeding. She did not hit her head or lose consciousness. She reports taking Claritin and vitamins. She states she has not yet seen an OB this but has an upcoming appointment in [place]. - Related Data Home Medications Medication Instructions Recorded Confirmed medroxyPROGESTERone [Depo-Provera] 150 mg IM Q84D 05/05/21 05/12/21 Allergies Allergy/AdvReac Type Severity Reaction Status Date / Time Latex, Natural Rubber Allergy Unknown Verified 04/07/23 20:34 Review of Systems ROS Statement: Those systems with pertinent positive or pertinent negative responses have been documented in the HPI. ROS Other: All systems not noted in ROS Statement are negative. Past Medical History Past Medical History: No Reported History Additional Past Medical History / Comment(s): muscle spasms, shingles History of Any Multi-Drug Resistant Organisms: None Reported Past Surgical History: Ear Surgery Additional Past Surgical History / Comment(s): tubes in ears Past Psychological History: ADD/ADHD Smoking Status: Never smoker Past Alcohol Use History: Occasional Past Drug Use History: None Reported General Exam Limitations: no limitations General appearance: alert, in no apparent distress Head exam: Present: atraumatic, normocephalic, normal inspection Eye exam: Present: normal appearance, PERRL, EOMI. Absent: scleral icterus, conjunctival injection, periorbital swelling ENT exam: Present: normal exam, mucous membranes moist Neck exam: Present: normal inspection. Absent: tenderness, meningismus, lymphadenopathy Respiratory exam: Present: normal lung sounds bilaterally. Absent: respiratory distress, wheezes, rales, rhonchi, stridor, chest wall tenderness, accessory muscle use, decreased breath sounds, prolonged expiratory Cardiovascular Exam: Present: regular rate, normal rhythm, normal heart sounds. Absent: systolic murmur, diastolic murmur, rubs, gallop, clicks GI/Abdominal exam: Present: soft, normal bowel sounds. Absent: distended, tenderness, guarding, rebound, rigid Extremities exam: Present: normal inspection, full ROM, normal capillary refill. Absent: tenderness, pedal edema, joint swelling, calf tenderness Back exam: Present: normal inspection Neurological exam: Present: alert, oriented X3 Psychiatric exam: Present: normal affect, normal mood Skin exam: Present: warm, dry, intact, normal color. Absent: rash Course Vital Signs 04/07/23 04/07/23 04/08/23 20:34 22:43 00:19 Temperature 98.0 F Pulse Rate 92 85 78 Respiratory 18 16 16 Rate Blood Pressure 119/69 114/62 118/72 O2 Sat by Pulse 98 96 97 Oximetry Medical Decision Making - Medical Decision Making Was pt. sent in by a medical professional or institution (, PA, FICTION AND NONFICTION AUTHOR, urgent care, hospital, or [facility]...) When possible be specific @ -No Did you speak to anyone other than the patient for history (EMS, parent, family, police, friend...)? What history was obtained from this source @ -EMS Did you review nursing and triage notes (agree or disagree)? Why? @ -I reviewed and agree with nursing and triage notes Were old charts reviewed (outside hosp., previous admission, EMS record, old EKG, old radiological studies, urgent care reports/EKG's, [facility] records)? Report findings @ -No old charts were reviewed Differential Diagnosis (chest pain, altered mental status, abdominal pain women, abdominal pain men, vaginal bleeding, weakness, fever, dyspnea, syncope, headache, dizziness, GI bleed, back pain, seizure, CVA, palpatations, mental health, musculoskeletal)? @ -not applicable EKG interpreted by me (3pts min.). @ -None X-rays interpreted by me (1pt min.). @ -Chest x-ray shows no evidence for acute process CT interpreted by me (1pt min.). @ -None done U/S interpreted by me (1pt. min.). @ -Ultrasound shows single live intrauterine measuring 16 weeks 4 days interpreted by radiologist What testing was considered but not performed or refused? (CT, X-rays, U/S, labs)? Why? @ -None What meds were considered but not given or refused? Why? @ -None Did you discuss the management of the patient with other professionals (professionals i.e. , PA, FICTION AND NONFICTION AUTHOR, lab, RT, psych nurse, social media sr strategy manager, ground worker, teacher, conservation officer, case management coordinator)? Give summary @ -No Was smoking cessation discussed for >3mins.? @ -No Was critical care preformed (if so, how long)? @ -No Were there social determinants of health that impacted care today? How? (Homelessness, low income, unemployed, alcoholism, drug addiction, transportation, low edu. Level, literacy, decrease access to med. care, fci, rehab)? @ -No Was there de-escalation of care discussed even if they declined (Discuss DNR or withdrawal of care, Hospice)? DNR status @ -No What co-morbidities impacted this encounter? (DM, HTN, Smoking, COPD, CAD, Cancer, CVA, ARF, Chemo, Hep., AIDS, mental health diagnosis, sleep apnea, morbid obesity)? @ -None Was patient admitted / discharged? Hospital course, mention meds given and r oute, prescriptions, significant lab abnormalities, going to OR and other pertinent info. @ -Discharge. Patient presented to the emergency department via EMS for fall. Patient states that she tripped and fell down a couple of stairs landed on her right side. She is reporting abdominal cramping. Patient states that she is around 15 weeks . She is not having any vaginal bleeding at this time. Ultrasound shows single live intrauterine measuring 16 4 days. She has not been to see her OB yet. She has an upcoming appointment. Chest x-ray was performed with lead applied. XR not read at time of discharge but reviewed by myself which does not appear to have any acute fracture. Patient given the option to wait for x-ray read or go home and she would like to go home. X-ray review later on which showed no evidence for acute cardiopulmonary process. Patient stable at time of discharge. Case discussed with attending, Dr. Arredondo. Undiagnosed new problem with uncertain prognosis? @ -No Drug Therapy requiring intensive monitoring for toxicity (Heparin, Nitro, Insulin, Cardizem)? @ -No Were any procedures done? @ -No Diagnosis/symptom? @ -Fall Acute, or Chronic, or Acute on Chronic? @ -Acute Uncomplicated (without systemic symptoms) or Complicated (systemic symptoms)? @ -Uncomplicated Side effects of treatment? @ -No Exacerbation, Progression, or Severe Exacerbation? @ -No Poses a threat to life or bodily function? How? (Chest pain, [place], [place], pneumonia, PE, COPD, DKA, ARF, appy, cholecystitis, CVA, Diverticulitis, Homicidal, Suicidal, threat to staff... and all critical care pts) @ -No Disposition Clinical Impression: Fall Disposition: HOME SELF-CARE Condition: Stable Instructions (If sedation given, give patient instructions): Fall Prevention (ED) Additional Instructions: Take Tylenol as needed for pain. Follow-up with your OB as planned. Return to the emergency department for new or worsening symptoms. Is patient prescribed a controlled substance at d/c from ED?: No Referrals: Scot Neff MD [Primary Care Provider] - 1-2 days Time of Disposition: 00:11
--- NOTE | 2023-04-07 22:07 | US ---
EXAMINATION TYPE: US OB >= 14 wk fetus DATE OF EXAM: 04/07/2023 COMPARISON: None CLINICAL INDICATION: Female, 27 years old with history of fall, cramping; TECHNIQUE: Transabdominal (TA) GESTATIONAL AGE / DATING Physician Established: Not yet established Dates by LMP: (15 weeks/6 days) EDC: 09/23/2023 Dates by First Scan: No previous this is first scan Dates by Current Scan: (16 weeks/4 days) EDC: 09/18/2023 SURVEY IUP: Single PLACENTA: Anterior - 2 anechoic areas seen measuring 2.5cm and 1.8cm PREVIA: No Previa SAI: 10.9 cm Normal CERVICAL LENGTH (transabdominal: norm > 3.0cm): 3.2 cm BIOMETRY PRESENTATION: Vertex LIE: Longitudinal BPD: 3.4 cm 16 weeks / 4 days HC: 12.5 cm 16 weeks / 2 days AC: 10.7 cm 16 weeks / 5 days FL: 2.2 cm 16 weeks / 5 days ESTIMATED WEIGHT IN GRAMS: 163 grams ESTIMATED WEIGHT IN LBS/OZ: 0 lbs. 6 oz. WEIGHT PERCENTAGE BASED ON ESTABLISHED DATES: 88% HC/AC: 1.17 Normal FL/AC: 21% HEART RATE: 163 bpm RHYTHM: Normal IMPRESSION: Single live intrauterine gestation with ultrasound age of 16 weeks 4 days. Additional information as described above.
[2023-04-08 00:28] VITALS: RESP 16
[2023-04-08 00:29] VITALS: BP 118/72; PULSE 78
--- NOTE | 2023-04-08 00:55 | XR ---
EXAM: XR Chest, 2 Views CLINICAL HISTORY: ITS.REASON XR Reason: fall, lead please TECHNIQUE: Frontal and lateral views of the chest. COMPARISON: 11/11/2021 FINDINGS: Lungs: No consolidation. No overt edema. Pleural space: No pleural effusion. No pneumothorax. Heart: Unremarkable. No cardiomegaly. Bones/joints: Unremarkable. No fracture or malalignment. IMPRESSION: No acute cardiopulmonary abnormality.
== END 2023-04-08 00:19 | disposition home or self-care (01) ==
LOC: EC 20:21
DX: Z04.3 Encounter for examination and observation following other accident (principal); O99.342 Other mental disorders complicating pregnancy, second trimester; F90.9 Attention-deficit hyperactivity disorder, unspecified type; Z79.899 Other long term (current) drug therapy; Z91.030 Bee allergy status; Z3A.16 16 weeks gestation of pregnancy; W01.0XXA Fall on same level from slipping, tripping and stumbling without subsequent striking against object, initial encounter; Y93.01 Activity, walking, marching and hiking
CPT/HCPCS: 71046; 76805; 99284

== ENCOUNTER → 2023-06-19 | Outpatient (CLI) | payer OTHER ==
[2023-06-19 17:35] LABS: Appearance,Urine Cloudy (Clear); Bacteria,Urine Rare /hpf; Bilirubin,Urine Negative (Negative); Blood,Urine Negative (Negative); Color,Urine Yellow; Glucose,Urine (UA) Negative (Negative); Hyaline Casts,Urine 1 /lpf (0-2); Ketones,Urine 1+ (Negative); Leukocyte Esterase,Urine Large (Negative); Mucus,Urine Many /hpf; Nitrite,Urine Negative (Negative); PH, Urine 6.5 (5.0-8.0); Protein,Urine 1+ (Negative); RBC,Urine 1 /hpf (0-5); Specific Gravity,Urine 1.025 (1.001-1.035); Squamous Epithelial Cell,Urine 10 /hpf (0-4); WBC,Urine 16 /hpf (0-5)
[2023-06-19 20:10] VITALS: BP 109/63; PULSE 199; RESP 16; TEMP 98.1
--- NOTE | 2023-06-26 10:21 | P.MSEPDOC ---
Presenting Problems - Arrival Data Date of Arrival on Unit: 06/19/23 Time of Arrival on Unit: 15:07 Mode of Transport: Ambulatory - Complaint OB-Reason for Admission/Chief Complaint: Decreased Movement Comment: Pt presents to triage with complaints of not feeling baby moving since last night and of dizziness and sharp pains in vagina. pt states she has developmental delays and does not read or write and that her sister is here to help her sign papers and read consents. states she was unable to find an ob dr in [place]. She has been gettingcare from "Dr Whatley" for basic monitoring. [facility] records reviewed and discovered U/S from 04/07 that dated preg. with edc 09/18 per us and 09/23 per edc. [place], vertex fetus no previa noted Medical History - Information : 5 Para: 2 Term: 2 : 0 Abortions: Spontaneous or Elective: 2 Number of Living Children: 2 - Gestational Age Gestational Age by CELESTINE (wks/days): 27 Weeks and 0 Days - History Complications: Other Comment: pt states she was unable to find an ob dr in [place]. She has been getting care from "Dr Whatley" for basic monitoring and some labs and now goes to [facility] OB clinic. pt states she has custody of her son but she surrendered temporary custody of her daughter to her mom about 5 years ago due to pt not having stable living conditions on her own and her Shabbir also has some delays. pt and sister state pt has full custody of her son because she now lives with mom so both kids are with her in a stable environment. Denies problems with last pregnancies both vag 39 weeks at [facility].Had " lots of bleeding after 2nd baby but did not need blood" States presented 8 cm with first and 10 cms with second and delivered without IV and only a couple pushes Review of Systems - Review of Systems Constitutional: No problems Breast: No problems ENT: No problems Cardiovascular: No problems Respiratory: No problems Gastrointestinal: No problems Genitourinary: No problems Musculoskeletal: No problems Neurological: No problems Skin: No problems Vital Signs - Temperature Temperature: 98.1 F Temperature Source: Temporal Artery Scan - Pulse Right Pulse Rate: 199 Pulse Assessment Method: Automatic Cuff - Respirations Respiratory Rate: 16 Oxygen Delivery Method: Room Air O2 Sat by Pulse Oximetry: 98 - Blood Pressure Right Arm Blood Pressure: 109/63 Blood Pressure Mean: 78 Blood Pressure Source: Automatic Cuff Medical Screen Scoring - Uterine Contractions Frequency From (mins): 0 Frequency To (mins): 0 Duration From (seconds): 0 Duration To (seconds): 0 Intensity: Absent Resting: Soft to palpation - Assessment - Baby A Heart Rate - NICHD Category: Category I (Normal) Physician Notification - Physician Notified Physician Notified Date: 06/19/23 Physician Notified Time: 17:50 Physician: Angely Ortega New Order Received: Yes (Discharge order received) - Notification Comment Comment: Jordan notified of pts reason for visit of decreased movement, dizziness, shooting pain in "vaginal area". denies any leaking fluid, denies contractions, no visible or palpaple ctx. abd soft non tender, vss. baby active cat 1 FHT. 27w6d per US in our ED in March. Pt has had limited care provided by " Dr Neff" and the "OB clinic at [facility]. Some labs also reviewed from March. Pt states has had 2 vag deliveries @ 39 weeks had bleeding after last baby 3 years ago but did not need blood. UA spec delayed in lab and just resulted. results reviewed. Discharge order revcieved. Confirmed with Dr Ortega pt is plannning on delivering at [facility] and has scheduled appt there in 3 weeks adn hoping for induction at 39wks at [place]. was seen 06/13. See's " Dr Liv Greenfield" and has transportation to get to and from there. Pt encouraged to get hard copy of record and we will continue to attempt to get from clinic once fax issues resolved Maternal Triage Index - Maternal Triage Index Presenting for scheduled procedure w/no complaint: No - Stat/Priority 1 Stat Priority 1: No - Urgent/Priority 2 Urgent Priority 2: No - Prompt/Priority 3 Prompt Priority 3: No - Non-Urgent/Priority 4 Non-Urgent Priority 4: Yes Criteria Met for Priority 4: vaginal shooting pain, decreased movement but feeling baby move right after getting to hospital Disposition - Disposition OB Disposition: Discharge to home Discharge Date: 06/19/23 Discharge Time: 18:24 I agree with the RN Medical Screening Exam: Yes Case reviewed; plan agreed upon as documented in EMR&OBIX.: Yes Diagnosis: decreased movement
== END ==
LOC: FBPOP 15:07
PROVIDERS: ATTEND Obstetrics & Gynecology
DX: O36.8121 Decreased fetal movements, second trimester, fetus 1 (principal); O26.891 Other specified pregnancy related conditions, first trimester; R42 Dizziness and giddiness; Z3A.27 27 weeks gestation of pregnancy; Z91.040 Latex allergy status; Z87.891 Personal history of nicotine dependence
CPT/HCPCS: 81001; 87086; G0463; 99213

== ENCOUNTER 2023-06-25 18:19 | Outpatient (CLI) | payer OTHER ==
[2023-06-25] MEDS ORDERED: ACETAMINOPHEN TAB 325 MG TAB PO STA (19:04)
[2023-06-25 19:35] LABS: Appearance,Urine Cloudy (Clear); Bacteria,Urine Rare /hpf; Bilirubin,Urine Negative (Negative); Blood,Urine Negative (Negative); Color,Urine Yellow; Glucose,Urine (UA) Negative (Negative); Ketones,Urine Negative (Negative); Leukocyte Esterase,Urine Large (Negative); Mucus,Urine Few /hpf; Nitrite,Urine Negative (Negative); PH, Urine 6.5 (5.0-8.0); Protein,Urine 1+ (Negative); RBC,Urine 1 /hpf (0-5); Specific Gravity,Urine 1.032 (1.001-1.035); Squamous Epithelial Cell,Urine 13 /hpf (0-4); WBC,Urine 12 /hpf (0-5)
[2023-06-25 19:38] LABS: Amphetamine Screen,Urine Not Detected (NotDetected); Barbiturate Screen,Urine Not Detected (NotDetected); Benzodiazepines Screen,Urine Not Detected (NotDetected); Cocaine Screen,Urine Not Detected (NotDetected); Methadone Screen, Urine Not Detected (NotDetected); Opiate Screen,Urine Not Detected (NotDetected); Oxycodone Screen, Urine Not Detected (NotDetected); Phencyclidine Screen,Urine Not Detected (NotDetected); Tricyclic Antidepressant,Urine Not Detected (NotDetected); Urn Cannabinoid Scrn Not Detected (NotDetected)
[2023-06-25 19:54] VITALS: BP 114/63; RESP 14; TEMP 98.3
[2023-06-25 20:17] LABS: Basophils % (A) 0 %; Eosinophils # (A) 0.1 k/uL (0-0.7); Eosinophils % (A) 3 %; HCT 28.9 % (34.0-46.0); HGB 9.8 gm/dL (11.4-16.0); Hypochromasia Slight; Lymphocytes # (A) 0.7 k/uL (1.0-4.8); Lymphocytes % (A) 16 %; MCH 29.3 pg (25.0-35.0); MCHC 33.7 g/dL (31.0-37.0); Mean Platelet Volume 8.5; Monocytes # (A) 0.3 k/uL (0-1.0); Monocytes % (A) 6 %; Neutrophils # (A) 3.3 k/uL (1.3-7.7); Neutrophils % (A) 74 %; Platelet Count 216 k/uL (150-450); Poikilocytosis Slight; RBC 3.33 m/uL (3.80-5.40); RDW 13.4 % (11.5-15.5); WBC 4.5 k/uL (3.8-10.6)
[2023-06-26 16:42] LABS: HIV 2 AB Non-Reactive (Non-Reactive); HIV AB P24 Non-Reactive (Non-Reactive); HIV P24 AG Non-Reactive (Non-Reactive)
--- NOTE | 2023-07-03 08:50 | P.MSEPDOC ---
Presenting Problems - Arrival Data Date of Arrival on Unit: 06/25/23 Time of Arrival on Unit: 18:19 Mode of Transport: Ambulatory - Complaint OB-Reason for Admission/Chief Complaint: Pain Medical History - Information : 2 Para: 2 Term: 2 Abortions: Spontaneous or Elective: 2 Number of Living Children: 2 - Gestational Age Gestational Age by CELESTINE (wks/days): 28 Weeks and 2 Days Review of Systems - Review of Systems Constitutional: No problems Breast: No problems ENT: No problems Cardiovascular: No problems Respiratory: No problems Gastrointestinal: No problems Genitourinary: No problems Musculoskeletal: No problems Neurological: No problems Skin: No problems Vital Signs - Temperature Temperature: 98.3 F Temperature Source: Temporal Artery Scan - Pulse Right Brachial Pulse Assessment Method: Automatic Cuff - Respirations Respiratory Rate: 14 Oxygen Delivery Method: Room Air - Blood Pressure Right Arm Blood Pressure: 114/63 Blood Pressure Mean: 80 Blood Pressure Source: Automatic Cuff Medical Screen Scoring - Cervical Exam Dilation (cm): 0 Effacement (%): 50 Station: -2 Membranes: Intact - Uterine Contractions Intensity: Absent Resting: Soft to palpation - Assessment - Baby A Baseline FHR: 145 Heart Rate - NICHD Category: Category I (Normal) NST: Reactive Physician Notification - Physician Notified Physician Notified Date: 06/25/23 Physician Notified Time: 18:50 Physician: Elicia Walters Order Received: Yes - Notification Comment Comment: check cervix if closed d/c home send UA Maternal Triage Index - Maternal Triage Index Presenting for scheduled procedure w/no complaint: No - Stat/Priority 1 Stat Priority 1: No - Urgent/Priority 2 Urgent Priority 2: No - Prompt/Priority 3 Prompt Priority 3: No - Non-Urgent/Priority 4 Non-Urgent Priority 4: Yes Criteria Met for Priority 4: Pain Disposition - Disposition OB Disposition: Discharge to home Discharge Date: 06/25/23 Discharge Time: 20:17 I agree with the RN Medical Screening Exam: Yes Physician's MSE Comment: I have neither seen nor examined the patient Case reviewed; plan agreed upon as documented in EMR&OBIX.: Yes Diagnosis: MATERNAL CARE FOR PROBLEM, UNSP, SECOND * DO NOT USE *
== END 2023-06-25 20:17 | disposition home or self-care (01) ==
LOC: FBPOP 18:19
PROVIDERS: ATTEND Obstetrics & Gynecology
DX: O36 Maternal care for other fetal problems (principal); R52 Pain, unspecified; Z3A.28 28 weeks gestation of pregnancy; Z91.040 Latex allergy status; Z87.891 Personal history of nicotine dependence
CPT/HCPCS: 59025; 84112; 36415; 86900; 86901; 86762; 85025; 86850; 81001; 80306; 87086; 87390; G0463; 99213

== ENCOUNTER 2023-07-04 20:25 | Outpatient (CLI) | payer OTHER ==
[2023-07-04 21:28] LABS: Appearance,Urine Cloudy (Clear); Bilirubin,Urine Negative (Negative); Blood,Urine Negative (Negative); Color,Urine Yellow; Glucose,Urine (UA) Negative (Negative); Leukocyte Esterase,Urine Moderate (Negative); Mucus,Urine Many /hpf; Nitrite,Urine Negative (Negative); Protein,Urine 1+ (Negative); RBC,Urine 1 /hpf (0-5); Specific Gravity,Urine 1.039 (1.001-1.035); Squamous Epithelial Cell,Urine 5 /hpf (0-4); WBC,Urine 3 /hpf (0-5)
[2023-07-04 21:37] LABS: Ketones,Urine 4+ (Negative)
[2023-07-04 21:53] VITALS: BP 116/58; PULSE 88; RESP 18; TEMP 97.8
--- NOTE | 2023-07-05 06:45 | P.MSEPDOC ---
Presenting Problems - Arrival Data Date of Arrival on Unit: 07/04/23 Time of Arrival on Unit: 20:25 Mode of Transport: Stretcher - Complaint OB-Reason for Admission/Chief Complaint: Vaginal Bleeding, Pain, Signs/Symptoms UTI Comment: Pt presents to triage with c/o abdominal pain x4 days, worsening today feeling like cx pain. States she has discharge and spotting when she goes to the bathroom and wipes. States she has some pressure when urinating. Medical History - Information : 5 Para: 2 Term: 2 : 0 Abortions: Spontaneous or Elective: 2 Number of Living Children: 2 - Gestational Age Gestational Age by CELESTINE (wks/days): 28 Weeks and 3 Days Review of Systems - Review of Systems Constitutional: No problems Breast: No problems ENT: No problems Cardiovascular: No problems Respiratory: No problems Gastrointestinal: No problems Genitourinary: No problems Musculoskeletal: No problems Neurological: No problems Skin: No problems Vital Signs - Temperature Temperature: 97.8 F Temperature Source: Temporal Artery Scan - Pulse Pulse Oximetery Pulse Rate: 88 Pulse Assessment Method: Pulse Oximetry - Respirations Respiratory Rate: 18 Oxygen Delivery Method: Room Air O2 Sat by Pulse Oximetry: 98 - Blood Pressure Right Arm Blood Pressure: 116/58 Blood Pressure Mean: 77 Blood Pressure Source: Automatic Cuff Medical Screen Scoring - Assessment - Baby A Baseline FHR: 145 Heart Rate - NICHD Category: Category I (Normal) Physician Notification - Physician Notified Physician Notified Date: 07/04/23 Physician Notified Time: 21:00 Physician: Brett Casanova New Order Received: Yes - Notification Comment Comment: Spoke with Dr. Casanova, pt 28 weeks 3 days. Arrives via EMS c/o abdominal pain x4 days, worsening today and feels like cx pain that comes and goes. Pt complains of spotting and discharge when urinating and wiping. Pt has back pain. No bleeding noted by RN, pt does not have to wear pad. Urine rosaline colored and sent UA. BP 143/64, 116/58, 110/62. Orders recieved to check cervix, if closed, D/c home and pt to follow up with primary OB tomorrow Maternal Triage Index - Maternal Triage Index Presenting for scheduled procedure w/no complaint: No - Stat/Priority 1 Stat Priority 1: No - Urgent/Priority 2 Urgent Priority 2: No - Prompt/Priority 3 Prompt Priority 3: No - Non-Urgent/Priority 4 Non-Urgent Priority 4: Yes Criteria Met for Priority 4: Pt presents to triage with c/o abdominal pain x4 days, worsening today feeling like cx pain. States she has discharge and spotting when she goes to the bathroom and wipes. States she has some pressure when urinating. Disposition - Disposition OB Disposition: Triage, Discharge to home Discharge Date: 07/04/23 Discharge Time: 21:17 I agree with the RN Medical Screening Exam: Yes Case reviewed; plan agreed upon as documented in EMR&OBIX.: Yes Diagnosis: RELATED CONDITIONS, UNSPECIFIED, THIRD TRIMESTER (Patient presents with complaints of chronic pelvic pain in . Was apparently evaluated here about 1 week ago. Her sees another OB not at this facility. Evaluation here again is negaitve. No evidence of labor or compromise. Patient was advised to followup with her primary OB tomorrow for evaluation of her chronic discharge. To return if other concerns. )
== END 2023-07-04 21:17 | disposition home or self-care (01) ==
LOC: FBPOP 20:25
PROVIDERS: ATTEND Obstetrics & Gynecology
DX: O26.893 Other specified pregnancy related conditions, third trimester (principal); O46.93 Antepartum hemorrhage, unspecified, third trimester; G89.29 Other chronic pain; R10.2 Pelvic and perineal pain; Z3A.28 28 weeks gestation of pregnancy; Z91.040 Latex allergy status; Z87.891 Personal history of nicotine dependence
CPT/HCPCS: 59025; 81001; G0463; 99213

== ENCOUNTER 2023-07-10 21:08 | Outpatient (CLI) | payer OTHER ==
[2023-07-10 23:12] VITALS: BP 116/59; PULSE 103; RESP 16; TEMP 97.4
--- NOTE | 2023-07-21 10:41 | P.MSEPDOC ---
Presenting Problems - Arrival Data Date of Arrival on Unit: 07/10/23 Time of Arrival on Unit: 19:31 Mode of Transport: Ambulatory - Complaint OB-Reason for Admission/Chief Complaint: Decreased Movement Medical History - Information : 5 Para: 2 Term: 2 : 0 Abortions: Spontaneous or Elective: 2 Number of Living Children: 2 - Gestational Age Gestational Age by CELESTINE (wks/days): 30 Weeks and 0 Days Review of Systems - Review of Systems Constitutional: No problems Breast: No problems ENT: No problems Cardiovascular: No problems Respiratory: No problems Gastrointestinal: No problems Genitourinary: No problems Musculoskeletal: No problems Neurological: No problems Skin: No problems Vital Signs - Temperature Temperature: 97.4 F Temperature Source: Oral - Pulse Pulse Oximetery Pulse Rate: 103 Pulse Assessment Method: Pulse Oximetry - Respirations Respiratory Rate: 16 Oxygen Delivery Method: Room Air - Blood Pressure Left Arm Sitting Blood Pressure: 116/59 Blood Pressure Mean: 78 Blood Pressure Source: Automatic Cuff Medical Screen Scoring - Uterine Contractions Frequency From (mins): 0 Intensity: Absent Resting: Soft to palpation - Assessment - Baby A Baseline FHR: 140 Heart Rate - NICHD Category: Category I (Normal) NST: Reactive Physician Notification - Physician Notified Physician Notified Date: 07/10/23 Physician Notified Time: 22:30 Physician: Clyde Fay Order Received: Yes - Notification Comment Comment: Patient may be discharged home. Patient to follow up with her regular Dr. Maternal Triage Index - Maternal Triage Index Presenting for scheduled procedure w/no complaint: No - Stat/Priority 1 Stat Priority 1: No - Urgent/Priority 2 Urgent Priority 2: No - Prompt/Priority 3 Prompt Priority 3: Yes Criteria Met for Priority 3: DOM patient, 30 weeks with CELESTINE of 09/18/2023 , presents with c/o decreased . movement. Patient denies bleeding or loss of fluid Disposition - Disposition OB Disposition: Discharge to home Discharge Date: 07/10/23 Discharge Time: 22:47 I agree with the RN Medical Screening Exam: Yes Physician's MSE Comment: I have neither seen nor examined the patient. Case reviewed; plan agreed upon as documented in EMR&OBIX.: Yes Diagnosis: RELATED CONDITIONS, UNSPECIFIED, THIRD TRIMESTER
== END 2023-07-10 22:47 | disposition home or self-care (01) ==
LOC: FBPOP 21:08
PROVIDERS: ATTEND Obstetrics & Gynecology
DX: O36.8131 Decreased fetal movements, third trimester, fetus 1 (principal); Z3A.30 30 weeks gestation of pregnancy; Z91.040 Latex allergy status; Z87.891 Personal history of nicotine dependence
CPT/HCPCS: 59025; 99213

== ENCOUNTER 2023-07-16 11:51 | Outpatient (CLI) | payer OTHER ==
[2023-07-16 13:41] VITALS: BP 117/63; PULSE 99; RESP 14; TEMP 97.3
--- NOTE | 2023-07-21 10:47 | P.MSEPDOC ---
Presenting Problems - Arrival Data Date of Arrival on Unit: 07/16/23 Time of Arrival on Unit: 12:00 Mode of Transport: Ambulatory - Complaint OB-Reason for Admission/Chief Complaint: Other Comment: discharge Medical History - Information : 5 Para: 2 Term: 2 : 0 Abortions: Spontaneous or Elective: 2 Number of Living Children: 2 - Gestational Age Gestational Age by CELESTINE (wks/days): 30 Weeks and 6 Days Review of Systems - Review of Systems Constitutional: No problems Breast: No problems ENT: No problems Cardiovascular: No problems Respiratory: No problems Gastrointestinal: No problems Genitourinary: No problems Musculoskeletal: No problems Neurological: No problems Skin: No problems Vital Signs - Temperature Temperature: 97.3 F Temperature Source: Temporal Artery Scan - Pulse Right Brachial Pulse Rate: 99 Pulse Assessment Method: Automatic Cuff - Respirations Respiratory Rate: 14 Oxygen Delivery Method: Room Air - Blood Pressure Right Arm Blood Pressure: 117/63 Blood Pressure Mean: 81 Blood Pressure Source: Automatic Cuff Medical Screen Scoring - Assessment - Baby A Baseline FHR: 140 Heart Rate - NICHD Category: Category I (Normal) NST: Reactive Physician Notification - Physician Notified Physician Notified Date: 07/16/23 Physician Notified Time: 12:15 Physician: Clyde Fay Order Received: Yes - Notification Comment Comment: d/c home Maternal Triage Index - Maternal Triage Index Presenting for scheduled procedure w/no complaint: No - Stat/Priority 1 Stat Priority 1: No - Urgent/Priority 2 Urgent Priority 2: No - Prompt/Priority 3 Prompt Priority 3: No - Non-Urgent/Priority 4 Non-Urgent Priority 4: Yes Criteria Met for Priority 4: vaginal discharge Disposition - Disposition OB Disposition: Discharge to home Discharge Date: 07/16/23 Discharge Time: 13:00 I agree with the RN Medical Screening Exam: Yes Physician's MSE Comment: I have neither seen nor examined the patient. Case reviewed; plan agreed upon as documented in EMR&OBIX.: Yes Diagnosis: RELATED CONDITIONS, UNSPECIFIED, THIRD TRIMESTER
== END 2023-07-16 13:00 | disposition home or self-care (01) ==
LOC: FBPOP 11:51
PROVIDERS: ATTEND Obstetrics & Gynecology
DX: O26.893 Other specified pregnancy related conditions, third trimester (principal); N89.8 Other specified noninflammatory disorders of vagina; Z3A.30 30 weeks gestation of pregnancy; Z91.040 Latex allergy status; Z87.891 Personal history of nicotine dependence
CPT/HCPCS: 59025; G0463; 99213

== ENCOUNTER 2023-07-31 10:30 | Outpatient (CLI) | payer OTHER ==
[2023-07-31 11:20] LABS: Appearance,Urine Clear (Clear); Bilirubin,Urine Negative (Negative); Blood,Urine Negative (Negative); Color,Urine Colorless; Glucose,Urine (UA) 1+ (Negative); Ketones,Urine Negative (Negative); Leukocyte Esterase,Urine Small (Negative); Nitrite,Urine Negative (Negative); PH, Urine 6.5 (5.0-8.0); Protein,Urine Negative (Negative); RBC,Urine <1 /hpf (0-5); Specific Gravity,Urine 1.004 (1.001-1.035); Squamous Epithelial Cell,Urine 1 /hpf (0-4); Urobilinogen,Urine <2.0 mg/dL (<2.0); WBC,Urine 1 /hpf (0-5)
[2023-07-31 12:54] VITALS: BP 114/63; PULSE 114; RESP 16; TEMP 98.3
--- NOTE | 2023-08-01 11:29 | P.MSEPDOC ---
Presenting Problems - Arrival Data Date of Arrival on Unit: 07/31/23 Time of Arrival on Unit: 11:01 Mode of Transport: Ambulatory - Complaint OB-Reason for Admission/Chief Complaint: Other Comment: DOM PT SHOWED UP C/O RIBS AND LOWER ABD AND BACK DISCOMFORT. BEGAN YESTERDAY AROUND 130 PM. PT DENIES ANY LEAKING OR CONTRACTIONS. PT STATES SHE HAS GOTTEN CARE WITH DR AILYN MERCADO IN [place] PT EDC 09/18/2023 Medical History - Information : 5 Para: 2 Term: 2 : 0 Abortions: Spontaneous or Elective: 2 Number of Living Children: 2 - Gestational Age Gestational Age by CELESTINE (wks/days): 33 Weeks and 0 Days - History Complications: No Care Comment: PT STATES SHE HAS HAD CARE IN [place]. NOTE ON LAST VISIT INDICATED PT DOES NOT HAVE CUSTUDY OF HER 6 YEAR OLD DUE TO POOR LIVING CONDITION Review of Systems - Review of Systems Constitutional: No problems Breast: No problems ENT: No problems Cardiovascular: No problems Respiratory: No problems Gastrointestinal: No problems Genitourinary: No problems Musculoskeletal: No problems Neurological: No problems Skin: No problems Vital Signs - Temperature Temperature: 98.3 F Temperature Source: Oral - Pulse Right Brachial Pulse Rate: 114 Pulse Assessment Method: Automatic Cuff - Respirations Respiratory Rate: 16 Oxygen Delivery Method: Room Air O2 Sat by Pulse Oximetry: 98 - Blood Pressure Right Arm Blood Pressure: 114/63 Blood Pressure Mean: 80 Blood Pressure Source: Automatic Cuff Medical Screen Scoring - Cervical Exam Dilation (cm): 0 Membranes: Intact - Uterine Contractions Intensity: Mild Resting: Soft to palpation - Assessment - Baby A Heart Rate - NICHD Category: Category I (Normal) NST: Reactive Physician Notification - Physician Notified Physician Notified Date: 07/31/23 Physician Notified Time: 12:20 Physician: DR WEAVER New Order Received: Yes - Notification Comment Comment: MAY DICHARGE TO HOME AND HAVE PATIENT FOLLOW UP WITH HER PHYSICAN Maternal Triage Index - Non-Urgent/Priority 4 Non-Urgent Priority 4: Yes Criteria Met for Priority 4: PT DOM EDC 09/18/2023 HAS HAD PNCARE IN [place] C/O LOWER BACK AND ABD DISCOMFORT SINCE LAST NIGHT DENIES ROM OR CONTRACTIONS Disposition - Disposition OB Disposition: Discharge to home Discharge Date: 07/31/23 Discharge Time: 12:31 I agree with the RN Medical Screening Exam: Yes Case reviewed; plan agreed upon as documented in EMR&OBIX.: Yes Diagnosis: RELATED CONDITIONS, UNSPECIFIED, THIRD TRIMESTER
== END 2023-07-31 12:31 | disposition home or self-care (01) ==
LOC: FBPOP 10:30
PROVIDERS: ATTEND Obstetrics & Gynecology
DX: O26.893 Other specified pregnancy related conditions, third trimester (principal); Z3A.33 33 weeks gestation of pregnancy; Z91.040 Latex allergy status; Z87.891 Personal history of nicotine dependence
CPT/HCPCS: 59025; 81001; 87086; G0463; 99213

== ENCOUNTER 2023-08-04 19:43 | Outpatient (CLI) | payer OTHER ==
[2023-08-04 21:12] LABS: Appearance,Urine Clear (Clear); Bilirubin,Urine Negative (Negative); Blood,Urine Large (Negative); Color,Urine Colorless; Glucose,Urine (UA) Negative (Negative); Ketones,Urine Trace (Negative); Leukocyte Esterase,Urine Moderate (Negative); Nitrite,Urine Negative (Negative); Protein,Urine Negative (Negative); RBC,Urine 1 /hpf (0-5); Specific Gravity,Urine 1.004 (1.001-1.035); Squamous Epithelial Cell,Urine 2 /hpf (0-4); Urobilinogen,Urine <2.0 mg/dL (<2.0); WBC,Urine 5 /hpf (0-5)
[2023-08-04 21:13] LABS: Amphetamine Screen,Urine Not Detected (NotDetected); Barbiturate Screen,Urine Not Detected (NotDetected); Benzodiazepines Screen,Urine Not Detected (NotDetected); Cocaine Screen,Urine Not Detected (NotDetected); Methadone Screen, Urine Not Detected (NotDetected); Opiate Screen,Urine Not Detected (NotDetected); Oxycodone Screen, Urine Not Detected (NotDetected); Phencyclidine Screen,Urine Not Detected (NotDetected); Tricyclic Antidepressant,Urine Not Detected (NotDetected); Urn Cannabinoid Scrn Not Detected (NotDetected)
--- NOTE | 2023-08-04 21:42 | US ---
EXAMINATION TYPE: US OB >= 14 wk fetus DATE OF EXAM: 08/04/2023 COMPARISON: US 04/07/2023 CLINICAL INDICATION: Female, 28 years old with history of no care; No care, patient had some red vaginal bleeding. . TECHNIQUE: Transabdominal (TA) GESTATIONAL AGE / DATING Physician Established: Not yet established Dates by LMP: (32 weeks/6 days) EDC: 09/23/2023 Dates by First Scan: (33 weeks/4 days) EDC: 09/18/2023 Dates by Current Scan: (34 weeks/3 days) EDC: 09/12/2023 SURVEY IUP: Single PLACENTA: Anterior, Appears slightly heterogeneous. Complex area seen measurin.3 x 1.0 x 1.0 cm. PREVIA: No Previa SAI: 16.1 cm Normal CERVICAL LENGTH (transabdominal: norm > 3.0cm): 3.4 cm BIOMETRY PRESENTATION: Vertex BPD: 8.6 cm 34 weeks / 5 days HC: 30.8 cm 34 weeks / 3 days AC: 31.5 cm 35 weeks / 3 days FL: 6.4 cm 33 weeks / 0 days ESTIMATED WEIGHT IN GRAMS: 2454 grams ESTIMATED WEIGHT IN LBS/OZ: 5 lbs. 7 oz. WEIGHT PERCENTAGE BASED ON ESTABLISHED DATES: 72% *compared to ultrasound dates from exam on 023 HC/AC: 0.98 Normal FL/AC: 20% Normal HEART RATE: 160 bpm RHYTHM: Normal IMPRESSION: 1. Single live intrauterine gestational with ultrasound age of 34 weeks 3 days 2. Nonspecific Heterogenous placenta with small complex area along the surface noted. 3. Additional information as described above.
[2023-08-04 21:47] LABS: Basophils % (A) 0 %; Eosinophils # (A) 0.1 k/uL (0-0.7); Eosinophils % (A) 1 %; HCT 26.3 % (34.0-46.0); HGB 8.7 gm/dL (11.4-16.0); Hypochromasia Slight; Lymphocytes # (A) 0.9 k/uL (1.0-4.8); Lymphocytes % (A) 15 %; MCH 26.6 pg (25.0-35.0); MCHC 33.2 g/dL (31.0-37.0); Monocytes # (A) 0.3 k/uL (0-1.0); Monocytes % (A) 5 %; Neutrophils # (A) 4.3 k/uL (1.3-7.7); Neutrophils % (A) 77 %; Platelet Count 191 k/uL (150-450); Poikilocytosis Slight; RBC 3.29 m/uL (3.80-5.40); RDW 15.1 % (11.5-15.5); WBC 5.6 k/uL (3.8-10.6)
[2023-08-04 22:54] VITALS: BP 128/78; PULSE 103; RESP 16; TEMP 97.8
[2023-08-05 02:28] LABS: Hepatitis B Surface Antigen Nonreactive
[2023-08-05 05:46] LABS: HIV 2 AB Non-Reactive (Non-Reactive); HIV AB P24 Non-Reactive (Non-Reactive); HIV P24 AG Non-Reactive (Non-Reactive)
--- NOTE | 2023-08-07 13:33 | P.MSEPDOC ---
Presenting Problems - Arrival Data Date of Arrival on Unit: 08/04/23 Time of Arrival on Unit: 19:43 Mode of Transport: Stretcher - Complaint OB-Reason for Admission/Chief Complaint: Possible Onset of Labor Comment: Patient presents to Triage via EMS with complaints of contractions that were every 30 sec to 2 min apart. Medical History - Information : 5 Para: 2 Term: 2 : 0 Abortions: Spontaneous or Elective: 2 Number of Living Children: 2 - Gestational Age Gestational Age by CELESTINE (wks/days): 32 Weeks and 6 Days Review of Systems - Review of Systems Constitutional: No problems Breast: No problems ENT: No problems Cardiovascular: No problems Respiratory: No problems Gastrointestinal: No problems Genitourinary: No problems Musculoskeletal: No problems Neurological: No problems Skin: No problems Vital Signs - Temperature Temperature: 97.8 F Temperature Source: Temporal Artery Scan - Pulse Pulse Oximetery Pulse Rate: 103 Pulse Assessment Method: Pulse Oximetry - Respirations Respiratory Rate: 16 Oxygen Delivery Method: Room Air O2 Sat by Pulse Oximetry: 98 - Blood Pressure Right Arm Blood Pressure: 128/78 Blood Pressure Mean: 94 Blood Pressure Source: Automatic Cuff Physician Notification - Physician Notified Physician Notified Date: 08/04/23 Physician Notified Time: 21:55 Physician: Jessica Wilson New Order Received: Yes (discharge) Maternal Triage Index - Maternal Triage Index Presenting for scheduled procedure w/no complaint: No - Stat/Priority 1 Stat Priority 1: No - Urgent/Priority 2 Urgent Priority 2: Yes Provider Notified: Jessica Wilson Provider Notified Time: 20:09 Criteria Met for Priority 2: Patient presents to Triage via EMS with complaints of contractions that were every 30 sec to 2 min apart. Disposition - Disposition OB Disposition: Discharge to home, Written follow up instructions reviewed I agree with the RN Medical Screening Exam: Yes Case reviewed; plan agreed upon as documented in EMR&OBIX.: Yes Diagnosis: FALSE LABOR BEFORE 37 COMPLETED WEEKS OF GEST, THIRD TRI
[2023-08-09 08:37] LABS: N. gonorrhoeae,PCR Negative (Negative)
[2023-08-09 12:43] LABS: C. trachomatis,PCR Negative (Negative)
== END 2023-08-04 22:50 ==
LOC: FBPOP 19:43
PROVIDERS: ATTEND Obstetrics & Gynecology
DX: O47.03 False labor before 37 completed weeks of gestation, third trimester (principal); Z91.040 Latex allergy status; Z87.891 Personal history of nicotine dependence; Z3A.34 34 weeks gestation of pregnancy
CPT/HCPCS: 59025; 86900; 86901; 86762; 82947; 85025; 86850; 87340; 81001; 87491; 87591; 86780; 80306; 87390; 76805; G0463; 99213

== ENCOUNTER 2023-08-21 20:42 | Outpatient (CLI) | payer OTHER | END 2023-08-21 21:36 | disposition home or self-care (01) | LOC: FBPOP 20:42 | PROVIDERS: ATTEND Obstetrics & Gynecology | DX: O99.891 Other specified diseases and conditions complicating pregnancy (principal); M79.89 Other specified soft tissue disorders; Z91.040 Latex allergy status; Z87.891 Personal history of nicotine dependence; Z3A.36 36 weeks gestation of pregnancy | CPT/HCPCS: 59025; G0463; 99215 ==

== ENCOUNTER 2023-08-29 18:39 | Outpatient (CLI) | payer OTHER ==
[2023-08-29 21:11] VITALS: BP 122/69; PULSE 90; RESP 18; TEMP 97.9
--- NOTE | 2023-10-16 16:17 | P.MSEPDOC ---
Presenting Problems - Arrival Data Date of Arrival on Unit: 08/29/23 Time of Arrival on Unit: 18:39 Mode of Transport: Ambulatory - Complaint OB-Reason for Admission/Chief Complaint: Possible Onset of Labor Comment: Contractions since 1230, about every 5 minutes Medical History - Information : 5 Para: 2 Term: 2 : 0 Abortions: Spontaneous or Elective: 3 Number of Living Children: 2 - Gestational Age Gestational Age by CELESTINE (wks/days): 37 Weeks and 6 Days Review of Systems - Review of Systems Constitutional: No problems Breast: No problems ENT: No problems Cardiovascular: No problems Respiratory: No problems Gastrointestinal: No problems Genitourinary: No problems Musculoskeletal: No problems Neurological: No problems Skin: No problems Vital Signs - Temperature Temperature: 97.9 F Temperature Source: Temporal Artery Scan - Pulse Right Pulse Oximetery Pulse Rate: 90 Pulse Assessment Method: Pulse Oximetry - Respirations Respiratory Rate: 18 Oxygen Delivery Method: Room Air O2 Sat by Pulse Oximetry: 97 - Blood Pressure Right Arm Blood Pressure: 122/69 Blood Pressure Mean: 86 Blood Pressure Source: Automatic Cuff Medical Screen Scoring - Cervical Exam Dilation (cm): 1 Effacement (%): 50 Station: -2 Membranes: Intact - Uterine Contractions Frequency From (mins): 4 Frequency To (mins): 5 Duration From (seconds): 70 Duration To (seconds): 80 Intensity: Mild Resting: Soft to palpation - Assessment - Baby A Baseline FHR: 140 Heart Rate - NICHD Category: Category I (Normal) NST: Reactive Physician Notification - Physician Notified Physician Notified Date: 08/29/23 Physician Notified Time: 19:39 Physician: Angela Turner New Order Received: Yes Maternal Triage Index - Maternal Triage Index Presenting for scheduled procedure w/no complaint: No - Stat/Priority 1 Stat Priority 1: No - Urgent/Priority 2 Urgent Priority 2: No - Prompt/Priority 3 Prompt Priority 3: Yes Criteria Met for Priority 3: >37 weeks, pt appeared in active labor on arrival. - Non-Urgent/Priority 4 Non-Urgent Priority 4: No Disposition - Disposition OB Disposition: Admit Discharge Date: 08/29/23 Discharge Time: 20:42 I agree with the RN Medical Screening Exam: Yes Case reviewed; plan agreed upon as documented in EMR&OBIX.: Yes Diagnosis: RELATED CONDITIONS, UNSPECIFIED, THIRD TRIMESTER
== END 2023-08-29 20:42 | disposition home or self-care (01) ==
LOC: FBPOP 18:39
PROVIDERS: ATTEND Obstetrics & Gynecology Obstetrics
DX: O47.1 False labor at or after 37 completed weeks of gestation (principal); Z3A.37 37 weeks gestation of pregnancy; Z91.040 Latex allergy status; Z87.891 Personal history of nicotine dependence
CPT/HCPCS: 59025; G0463; 99213

== ENCOUNTER 2023-09-04 08:54 | Outpatient (CLI) | payer OTHER ==
[2023-09-04 10:13] VITALS: BP 114/71; PULSE 100; RESP 18; TEMP 98.4
== END 2023-09-04 09:55 | disposition home or self-care (01) ==
LOC: FBPOP 08:54
PROVIDERS: ATTEND Obstetrics & Gynecology
DX: Z53.9 Procedure and treatment not carried out, unspecified reason (principal)
CPT/HCPCS: 59025; G0463; 99213

== ENCOUNTER 2023-09-06 11:20 | Outpatient (CLI) | payer OTHER ==
[2023-09-06 12:22] VITALS: BP 121/72; PULSE 105; RESP 18; TEMP 98.1
== END 2023-09-06 12:13 | disposition home or self-care (01) ==
LOC: FBPOP 11:20
PROVIDERS: ATTEND Obstetrics & Gynecology
DX: Z53.9 Procedure and treatment not carried out, unspecified reason (principal)
CPT/HCPCS: 59025; G0463; 99213

== ENCOUNTER 2023-09-09 22:52 | Inpatient (IN) | payer OTHER ==
[2023-09-10] MEDS ORDERED: CARBOPROST TROMETHAMINE 250 MCG/ML 1 ML AMP IM PRN (01:58)
[2023-09-10] MEDS ORDERED: TRANEXAMIC 1,000 MG/100ML-NACL 1,000 MG in EMPTY BAG 1 BAG IV PRN (01:58)
[2023-09-10] MEDS ORDERED: LIDOCAINE 0.5% (PF) 5 MG/ML (50 ML SDV) SQ PRN (01:58)
[2023-09-10] MEDS ORDERED: TERBUTALINE 1 MG/ML VIAL SQ PRN (01:58)
[2023-09-10] MEDS ORDERED: OXYTOCIN 10 UNIT/ML 1 ML VIAL IM PRN (01:58)
[2023-09-10] MEDS ORDERED: miSOPROStoL 200 MCG TAB PO PRN (01:58)
[2023-09-10] MEDS ORDERED: METHYLERGONOVINE 0.2 MG/ML 1 ML AMP IM PRN (01:58)
[2023-09-10] MEDS ORDERED: ACETAMINOPHEN TAB 325 MG TAB PO STA (02:06)
[2023-09-10 02:33] LABS: Anisocytosis Moderate; Basophils % (A) 0 %; Eosinophils % (A) 0 %; HCT 35.1 % (34.0-46.0); HGB 11.3 gm/dL (11.4-16.0); Hypochromasia Slight; Lymphocytes # (A) 0.8 k/uL (1.0-4.8); Lymphocytes % (A) 12 %; MCH 26.8 pg (25.0-35.0); MCHC 32.3 g/dL (31.0-37.0); Mean Platelet Volume 10.6; Monocytes # (A) 0.3 k/uL (0-1.0); Monocytes % (A) 5 %; Neutrophils # (A) 5.2 k/uL (1.3-7.7); Neutrophils % (A) 81 %; Platelet Count 175 k/uL (150-450); RBC 4.23 m/uL (3.80-5.40); RDW 20.2 % (11.5-15.5); WBC 6.5 k/uL (3.8-10.6)
[2023-09-10] MEDS ORDERED: NALBUPHINE 10 MG/ML (10 ML MDV) IV PRN (02:47)
[2023-09-10 02:54] LABS: Amorphous Sediment,Urine Rare /hpf; Appearance,Urine Clear (Clear); Bacteria,Urine Rare /hpf; Bilirubin,Urine Negative (Negative); Blood,Urine Negative (Negative); Color,Urine Colorless; Glucose,Urine (UA) Negative (Negative); Hyaline Casts,Urine 1 /lpf (0-2); Ketones,Urine Negative (Negative); Leukocyte Esterase,Urine Moderate (Negative); Nitrite,Urine Negative (Negative); PH, Urine 6.5 (5.0-8.0); Protein,Urine Negative (Negative); RBC,Urine 1 /hpf (0-5); Specific Gravity,Urine 1.005 (1.001-1.035); Squamous Epithelial Cell,Urine 6 /hpf (0-4); Urobilinogen,Urine <2.0 mg/dL (<2.0); WBC,Urine 11 /hpf (0-5)
--- NOTE | 2023-09-10 02:56 | P.HPOB ---
History of Present Illness H&P Date: 09/10/23 Chief Complaint: labor 28 year old presents at 38 weeks 1 day in labor. her cervix changed from 2cm to now 4/70/-2. She is meghna every 2-4 minutes. heart tones 135 with moderate variability and reactive. Patient gets her care somewhere in [place]. She has been in and out of our triage several times in the last week. In July when she was here we did draw labs. Blood type is A+, antibodies negative, rubella immune, treponema antibody negative, HIV nonreactive, hepatitis B negative on 08/04/2023. She was also negative for gonorrhea and chlamydia. Review of Systems All systems: negative Constitutional: Denies chills, Denies fever Eyes: denies blurred vision, denies pain Ears, nose, mouth and throat: Denies headache, Denies sore throat Cardiovascular: Denies chest pain, Denies shortness of breath Respiratory: Denies cough Gastrointestinal: Denies abdominal pain, Denies diarrhea, Denies nausea, Denies vomiting Genitourinary: Denies dysuria, Denies hematuria Musculoskeletal: Denies myalgias Integumentary: Denies pruritus, Denies rash Neurological: Denies numbness, Denies weakness Psychiatric: Denies anxiety, Denies depression Endocrine: Denies fatigue, Denies weight change Past Medical History Past Medical History: No Reported History Additional Past Medical History / Comment(s): muscle spasms, shingles. She states she's had 2 previous vaginal deliveries History of Any Multi-Drug Resistant Organisms: None Reported Past Surgical History: Ear Surgery Additional Past Surgical History / Comment(s): tubes in ears Smoking Status: Never smoker Medications and Allergies Home Medications Medication Instructions Recorded Confirmed Type Vit No.179/Iron/Folic 1 tab PO DAILY 04/15/23 09/04/23 History [ Tablet] Allergies Allergy/AdvReac Type Severity Reaction Status Date / Time Latex, Natural Rubber Allergy Mild Rash/Hives Verified 09/09/23 23:09 Exam Osteopathic Statement: *. No significant issues noted on an osteopathic structural exam other than those noted in the History and Physical/Consult. Intake and Output 09/09/23 09/09/23 09/10/23 14:59 22:59 06:59 Other: Weight 83.461 kg Heart: Regular rate and rhythm Lungs: Clear to auscultation bilaterally Abdomen: Soft, nontender Extremities: Negative Homans sign Results Result Diagrams: 09/10/23 02:12 09/10/23 02:12 Abnormal Lab Results - Last 24 Hours (Table) 09/10/23 Range/Units 02:12 Hgb 11.3 L (11.4-16.0) gm/dL RDW 20.2 H (11.5-15.5) % Lymphocytes # 0.8 L (1.0-4.8) k/uL Assessment and Plan (1) Normal labor Current Visit: Yes Status: Acute Code(s): O80 - ENCOUNTER FOR FULL-TERM UNCOMPLICATED DELIVERY; Z37.9 - OUTCOME OF DELIVERY, UNSPECIFIED SNOMED Code(s): 67275926 (2) 38 weeks gestation of Current Visit: Yes Status: Acute Code(s): Z3A.38 - 38 WEEKS GESTATION OF SNOMED Code(s): 81339378 Plan: 1. Admit to family place 2. Expectant management 3. Anticipate normal vaginal delivery
[2023-09-10] MEDS ORDERED: diphenhydrAMINE 50 MG/ML 1 ML VIAL IVP PRN ×2 (05:10)
[2023-09-10] MEDS ORDERED: ZOLPIDEM 5 MG TAB PO PRN (05:10)
[2023-09-10] MEDS ORDERED: SIMETHICONE 80 MG CHEWABLE PO PRN (05:10)
[2023-09-10] MEDS ORDERED: diphenhydrAMINE 25 MG CAP PO PRN (05:10)
[2023-09-10] MEDS ORDERED: diphenhydrAMINE 50 MG CAP PO PRN (05:10)
[2023-09-10] MEDS ORDERED: HYDROCORTISONE 2.5% RECTAL CREAM 30 GM TUBE RECTAL PRN (05:10)
[2023-09-10] MEDS ORDERED: LANOLIN CREAM 5 GM TUBE TOPICAL PRN (05:10)
[2023-09-10] MEDS ORDERED: BENZOCAINE/MENTHOL SPRAY 1 GM/SPRAY AEROSOL TOPICAL PRN (05:10)
--- NOTE | 2023-09-10 05:14 | P.PROBDLV ---
Vaginal Delivery Note - . Vaginal Delivery Note: 28 year old presents at 38 weeks 1 day in labor. her cervix changed from 2cm to now 4/70/-2. She is meghna every 2-4 minutes. heart tones 135 with moderate variability and reactive. Patient was admitted to [facility] an IV was started. Amniotomy performed clear fluid noted. Patient slowly progressed to complete. When she was complete heart tones did have some prolonged variables down to 60. She pushed just a few times and delivered a viable female infant over intact perineum at 4:51 AM. Head delivered OA, anterior shoulder delivered gentle downward guidance followed by posterior shoulder and rest of body. Nose and mouth bulb suctioned, cord clamped and cut, placed mother's abdomen. Apgars 8, 9, weight 7 lbs. 9 oz. Placenta delivered spontaneously, intact with three-vessel cord at 4:53 AM. Vagina, cervix, perineum inspected. Second-degree midline laceration was repaired with 3-0 Vicryl. Estimated blood loss 200 ml. Mother and baby are in stable condition.
[2023-09-10] MEDS ORDERED: OXYTOCIN 30 UNITS/500 ML NS 30 UNIT in SALINE 1 500ML.BAG IV SCH (05:15)
[2023-09-10] MEDS: IBUPROFEN 600 MG TAB PO PRN ×2 (10:51→17:42)
[2023-09-10] MEDS: ACETAMINOPHEN TAB 325 MG TAB PO PRN ×2 (15:01→23:55)
[2023-09-10] MEDS: SENNOSIDES-DOCUSATE SODIUM 1 EACH TAB PO SCH ×2 (15:31→23:55)
[2023-09-10] MEDS: LACTATED RINGERS 1,000 ML IV SCH (15:32)
[2023-09-10 16:07] LABS: Hepatitis B Surface Antigen Nonreactive
[2023-09-11] MEDS: IBUPROFEN 600 MG TAB PO PRN ×2 (02:11→10:34)
[2023-09-11] MEDS: ACETAMINOPHEN TAB 325 MG TAB PO PRN ×2 (06:10→14:27)
[2023-09-11 06:32] LABS: Anisocytosis Moderate; Basophils % (A) 0 %; Eosinophils % (A) 1 %; HCT 32.3 % (34.0-46.0); HGB 10.4 gm/dL (11.4-16.0); Hypochromasia Slight; Lymphocytes # (A) 0.7 k/uL (1.0-4.8); Lymphocytes % (A) 13 %; MCH 27.1 pg (25.0-35.0); MCHC 32.3 g/dL (31.0-37.0); MCV 83.8 fL (80.0-100.0); Mean Platelet Volume 9.5; Microcytosis Slight; Monocytes # (A) 0.2 k/uL (0-1.0); Monocytes % (A) 5 %; Neutrophils # (A) 4.1 k/uL (1.3-7.7); Neutrophils % (A) 79 %; Platelet Count 150 k/uL (150-450); RBC 3.85 m/uL (3.80-5.40); RDW 20.7 % (11.5-15.5); WBC 5.2 k/uL (3.8-10.6)
[2023-09-11] MEDS: SENNOSIDES-DOCUSATE SODIUM 1 EACH TAB PO SCH (08:18)
--- NOTE | 2023-09-11 08:22 | P.DS ---
Providers Date of admission: 09/10/23 01:35 Expected date of discharge: 09/11/23 Attending physician: Mariia Roca Primary care physician: Stated None - Discharge Diagnosis(es) (1) Normal labor Current Visit: Yes Status: Resolved (2) 38 weeks gestation of Current Visit: Yes Status: Resolved (3) Normal vaginal delivery Current Visit: Yes Status: Acute Hospital Course: Patient presented in active labor. She underwent a normal vaginal delivery. course was uneventful. She denies nausea, vomiting, chest pain, shortness of breath or calf pain. Patient will be discharged home day #1 in stable condition to follow-up with her own doctor in 6 weeks. Plan - Discharge Summary Discharge Rx Participant: No New Discharge Prescriptions: New Ibuprofen [Motrin] 600 mg PO Q6HR PRN #30 tab PRN Reason: Mild Pain (Scale 1 To 3) No Action Vit No.179/Iron/Folic [ Tablet] 1 tab PO DAILY Discharge Medication List Vit No.179/Iron/Folic [ Tablet] 1 tab PO DAILY 04/15/23 [History] Ibuprofen [Motrin] 600 mg PO Q6HR PRN #30 tab 09/11/23 [Rx] Discharge Disposition: HOME SELF-CARE
[2023-09-11 08:28] VITALS: BP 119/78; PULSE 75; RESP 16; TEMP 98
[2023-09-11 13:58] LABS: HIV 2 AB Non-Reactive (Non-Reactive); HIV AB P24 Non-Reactive (Non-Reactive); HIV P24 AG Non-Reactive (Non-Reactive)
== END 2023-09-11 14:52 | disposition home or self-care (01) | DRG 560 ==
LOC: FBPOP 22:52 → 4FBP 09-10 01:35
PROVIDERS: ADMIT Obstetrics & Gynecology; ATTEND Obstetrics & Gynecology
PROC: 10E0XZZ Delivery of Products of Conception, External Approach (ICD-10-PCS; principal; 2023-09-10)
PROC: 0KQM0ZZ Repair Perineum Muscle, Open Approach (ICD-10-PCS; 2023-09-10)
PROC: 10907ZC Drainage of Amniotic Fluid, Therapeutic from Products of Conception, Via Natural or Artificial Opening (ICD-10-PCS; 2023-09-10)
DX: O70.1 Second degree perineal laceration during delivery (principal); Z3A.38 38 weeks gestation of pregnancy; Z37.0 Single live birth; Z91.040 Latex allergy status; Z91.048 Other nonmedicinal substance allergy status
CPT/HCPCS: 59025; 81001; 82947; 85025; 86762; 86780; 86850; 86900; 86901; 87340; 87390; 87491; 87591; 99213

== ENCOUNTER 2023-11-30 08:34 | Day surgery (SDC) | payer OTHER ==
[2023-11-27 10:19] VITALS: BMI 29.2
--- NOTE | 2023-11-30 07:14 | P.HPOB ---
History of Present Illness H&P Date: 11/30/23 Chief Complaint: family planning 28 year old presents for laparoscopic tubal ligation. Review of Systems All systems: negative Constitutional: Denies chills, Denies fever Eyes: denies blurred vision, denies pain Ears, nose, mouth and throat: Denies headache, Denies sore throat Cardiovascular: Denies chest pain, Denies shortness of breath Respiratory: Denies cough Gastrointestinal: Denies abdominal pain, Denies diarrhea, Denies nausea, Denies vomiting Genitourinary: Denies dysuria, Denies hematuria Musculoskeletal: Denies myalgias Integumentary: Denies pruritus, Denies rash Neurological: Denies numbness, Denies weakness Psychiatric: Denies anxiety, Denies depression Endocrine: Denies fatigue, Denies weight change Past Medical History Past Medical History: No Reported History Additional Past Medical History / Comment(s): muscle spasms, shingles History of Any Multi-Drug Resistant Organisms: None Reported Past Surgical History: Cholecystectomy, Ear Surgery Additional Past Surgical History / Comment(s): tubes in ears Past Anesthesia/Blood Transfusion Reactions: No Reported Reaction Smoking Status: Never smoker - Past Family History Mother Family Medical History: No Reported History Medications and Allergies Home Medications Medication Instructions Recorded Confirmed Type No Known Home Medications 11/27/23 11/27/23 History Allergies Allergy/AdvReac Type Severity Reaction Status Date / Time Latex, Natural Rubber Allergy Mild Rash/Hives Verified 11/27/23 09:58 lactose AdvReac Nausea & Verified 11/27/23 09:59 Vomiting & Diarrhea Exam Osteopathic Statement: *. No significant issues noted on an osteopathic structural exam other than those noted in the History and Physical/Consult. Heart: Regular rate and rhythm Lungs: Clear to auscultation bilaterally Abdomen: Soft, nontender Extremities: Negative Homans sign Assessment and Plan (1) Family planning Status: Acute Code(s): Z30.09 - ENCOUNTER FOR OTH GENERAL CNSL AND ADVICE ON CONTRACEPTION SNOMED Code(s): 721311153 Plan: 1. laparoscopic tubal ligation
[~2023-11-30 08:34] MED LIST: HYDROmorphone 0.5 MG/0.5 ML SYRINGE IVP PRN; Pre Op ABX Message 1 EACH MISC MISCELLANE ONE
[2023-11-30] MEDS: BUPIVACAINE (PF) 0.25% 30 ML VIAL SQ ONE ×3 (09:20→10:10)
[2023-11-30] MEDS: DEXAMETHASONE SOD PHOSPHATE 4 MG/ML 1 ML VIAL IV ONE (09:25)
[2023-11-30] MEDS: ONDANSETRON 4 MG/2 ML VIAL IVP ONE (09:25)
[2023-11-30] MEDS: LACTATED RINGERS 1,000 ML IV SCH (09:25)
[2023-11-30] MEDS: SCOPOLAMINE 1 MG/72 HR PATCH TRANSDERM ONE (09:25)
[2023-11-30] MEDS ORDERED: ROCURONIUM 10 MG/ML (5 ML VIAL) IV ONE (09:41)
[2023-11-30] MEDS ORDERED: MIDAZOLAM 2 MG/2 ML VIAL ONE (09:41)
[2023-11-30] MEDS ORDERED: fentaNYL (PF) 50 MCG/ML 2 ML AMP ONE (09:41)
[2023-11-30] MEDS ORDERED: LIDOCAINE 1% INJ 10MG/ML (20 ML MDV) ONE (09:41)
[2023-11-30] MEDS ORDERED: PROPOFOL 10 MG/ML 20 ML VIAL IV ONE (09:41)
[2023-11-30] MEDS ORDERED: GLYCOPYRROLATE 0.2 MG/ML 2 ML VIAL ONE (09:41)
[2023-11-30] MEDS ORDERED: KETOROLAC 15 MG/ML 1 ML VIAL ONE (09:41)
[2023-11-30] MEDS ORDERED: NEOSTIGMINE 1 MG/ML 10 ML VIAL ONE (09:41)
[2023-11-30] MEDS ORDERED: SUCCINYLCHOLINE CHLORIDE 200 MG/10 ML VIAL IV ONE (09:41)
--- NOTE | 2023-11-30 10:19 | P.OP ---
Date of Procedure: 11/30/23 Preoperative Diagnosis: 1. family planning Postoperative Diagnosis: 1. family planning Procedure(s) Performed: laparoscopic tubal ligation Anesthesia: MORGAN Surgeon: Mariia Roca Estimated Blood Loss (ml): 3 IV fluids (ml): 600 Urine output (ml): 10 Pathology: none sent Condition: stable Disposition: PACU Description of Procedure: Patient was taken to the operating room where general anesthesia was obtained without difficulty. She was prepped and draped in normal sterile fashion in the dorsal lithotomy position, legs placed in the Shakeel stirrups. Bladder drained of all urine. [place] speculum placed in the vagina and the anterior lip the cervix was grasped with single-tooth tenaculum. The uterus is sounded to 9 cm and the kroner manipulator was placed. Attention was then turned to the abdomen and gloves were changed. A 10 mm infraumbilical incision was made the scalpel and 10 mm optical trocar was placed under direct visualization. A 5 mm suprapubic Incision was made and a 5 mm optical trocar was placed under direct visualization. Survey of the pelvis revealed normal uterus tubes and ovaries. The left fallopian tube was grasped with a Kleppinger and fulgurated 2-3 cm on this side in the ampullar portion. The right fallopian tube was grasped with a Kleppinger and fulgurated 2-3 cm in the ampullar portion. All instruments were then removed from the abdomen and vagina. The 10 mm infraumbilical incision was closed with 0 Vicryl and the fascial layer and then 4-0 Vicryl in a subcuticular fashion. The 5 mm incision was closed with 4-0 Vicryl in a subcuticular fashion. Patient tolerated procedure well, sponge and instrument counts correct 2 and she was taken to recovery room in stable condition.
[2023-11-30 10:47] VITALS: RESP 16; TEMP 97.8
[2023-11-30 11:57] VITALS: BP 104/59; PULSE 52
[2023-11-30] MEDS: HYDROcodone/APAP 7.5-325MG 1 EACH TAB ONE (12:13)
== END 2023-11-30 12:20 | disposition home or self-care (01) ==
LOC: OR 08:34
PROVIDERS: ATTEND Obstetrics & Gynecology
DX: Z30.2 Encounter for sterilization (principal); J45.909 Unspecified asthma, uncomplicated; Z90.49 Acquired absence of other specified parts of digestive tract; Z91.040 Latex allergy status; Z91.011 Allergy to milk products
CPT/HCPCS: 58670; 81025; J2250; J0330; J1100; J2710; J2405; J2001; J3010; J1885; J2704; J0665

== ENCOUNTER → 2024-02-06 | Outpatient (CLI) | payer OTHER ==
--- NOTE | 2024-02-06 12:52 | XR ---
EXAMINATION TYPE: XR wrist complete RT DATE OF EXAM: 02/06/2024 CLINICAL HISTORY: pain TECHNIQUE: Frontal, lateral and oblique images of the right wrist are obtained. COMPARISON: None. FINDINGS: There is no acute fracture/dislocation evident. The joint spaces appear within normal limits. The o verlying soft tissue appears unremarkable. IMPRESSION: There is no acute fracture or dislocation seen. ICD 10 NO FRACTURE, INITIAL EVALUATION
== END | disposition home or self-care (01) ==
LOC: RADXRMAIN 12:30
PROVIDERS: ATTEND Physician Assistant
DX: M25.531 Pain in right wrist (principal)

== ENCOUNTER 2024-08-13 01:33 | Emergency (ER) | payer OTHER ==
[2024-08-13 01:36] VITALS: RESP 16
[2024-08-13] MEDS: ASPIRIN 81 MG PO STA (02:18)
[2024-08-13] MEDS: NALOXONE 0.4 MG/ML 1 ML VIAL IVP STA (02:46)
[2024-08-13] MEDS: SODIUM CHLORIDE 0.9% 1,000 ML IV STA (02:49)
[2024-08-13 02:53] LABS: Basophils % (A) 0 %; Eosinophils # (A) 0.1 k/uL (0-0.7); Eosinophils % (A) 1 %; HCT 39.3 % (34.0-46.0); HGB 12.9 gm/dL (11.4-16.0); Lymphocytes # (A) 1.2 k/uL (1.0-4.8); Lymphocytes % (A) 27 %; MCH 29.3 pg (25.0-35.0); MCHC 32.9 g/dL (31.0-37.0); Mean Platelet Volume 7.4; Monocytes # (A) 0.3 k/uL (0-1.0); Monocytes % (A) 6 %; Neutrophils # (A) 2.8 k/uL (1.3-7.7); Neutrophils % (A) 63 %; Platelet Count 179 k/uL (150-450); RBC 4.42 m/uL (3.80-5.40); RDW 12.7 % (11.5-15.5); WBC 4.5 k/uL (3.8-10.6)
--- NOTE | 2024-08-13 03:26 | XR ---
EXAM: XR Chest, 2 Views CLINICAL HISTORY: ITS.REASON XR Reason: Chest Pain TECHNIQUE: Frontal and lateral views of the chest. COMPARISON: No relevant prior studies available. FINDINGS: Lungs: No consolidation or mass. Pleural space: No effusion. Heart: No cardiomegaly. Bones/joints: No acute findings. IMPRESSION: No acute cardiopulmonary process.
[2024-08-13 03:30] LABS: Anion Gap 9 mmol/L; Blood Urea Nitrogen 13 mg/dL (7-17); Carbon Dioxide 22 mmol/L (22-30); Chloride 106 mmol/L (98-107); Glucose 94 mg/dL (74-99); Sodium 137 mmol/L (137-145)
[2024-08-13] MEDS: ONDANSETRON 4 MG/2 ML VIAL IVP STA (03:30)
[2024-08-13 03:31] LABS: ALT 31 U/L (4-34); African American GFR (CKD) >90 (>60 ml/min/1.73 sqM); Albumin 4.6 g/dL (3.5-5.0); Calcium 9.3 mg/dL (8.4-10.2); Lipase 57 U/L (23-300); Non-African American GFR(CKD) >90 (>60 ml/min/1.73 sqM); Prothrombin Time 11.2 sec (10.0-12.5); Total Bilirubin 1.4 mg/dL (0.2-1.3); Total Protein 7.4 g/dL (6.3-8.2)
[2024-08-13 03:32] LABS: Amorphous Sediment,Urine Rare /hpf; Appearance,Urine Clear (Clear); Bilirubin,Urine Negative (Negative); Blood,Urine Negative (Negative); Budding Yeast,Urine Few /hpf; Color,Urine Light Yellow; Glucose,Urine (UA) Negative (Negative); Ketones,Urine Negative (Negative); Leukocyte Esterase,Urine Large (Negative); Mucus,Urine Rare /hpf; Nitrite,Urine Negative (Negative); Protein,Urine Negative (Negative); RBC,Urine 2 /hpf (0-5); Specific Gravity,Urine 1.022 (1.001-1.035); Squamous Epithelial Cell,Urine 10 /hpf (0-4); WBC,Urine 28 /hpf (0-5)
[2024-08-13 03:32] LABS: AST 38 U/L (14-36); Alkaline Phosphatase 60 U/L (38-126); Magnesium 2.3 mg/dL (1.6-2.3); Potassium 4.3 mmol/L (3.5-5.1)
[2024-08-13 03:59] LABS: Cocaine Screen,Urine Not Detected (NotDetected); Phencyclidine Screen,Urine Not Detected (NotDetected)
[2024-08-13 04:00] LABS: Partial Thromboplastin Time 19.9 sec (22.0-30.0)
[2024-08-13 04:00] LABS: Amphetamine Screen,Urine Not Detected (NotDetected); Barbiturate Screen,Urine Not Detected (NotDetected); Benzodiazepines Screen,Urine Not Detected (NotDetected); Methadone Screen, Urine Not Detected (NotDetected); Opiate Screen,Urine Detected (NotDetected); Oxycodone Screen, Urine Not Detected (NotDetected); Tricyclic Antidepressant,Urine Not Detected (NotDetected); Urn Cannabinoid Scrn Not Detected (NotDetected)
--- NOTE | 2024-08-13 04:17 | ED ---
Chest Pain HPI - General Chief Complaint: Chest Pain Stated Complaint: Chest Pain/Shoulder Pain Time Seen by Provider: 08/13/24 01:40 Source: patient Mode of arrival: wheelchair Limitations: no limitations - History of Present Illness Initial Comments: 29-year-old female presenting with chief complaint of chest pain. Patient started having chest pain that radiated to the left arm at 0030 tonight. Patient has had pain like this before. Patient has been taking Barnum for recent dental procedure, sister who is accompanying the patient states that she seems a bit confused. No lower extremity swelling. She has some nausea, no vomiting or abdominal pain. - Related Data Previous Rx's Medication Instructions Recorded Ibuprofen [Motrin] 600 mg PO Q6HR PRN #30 tab 11/30/23 Allergies Allergy/AdvReac Type Severity Reaction Status Date / Time Latex, Natural Rubber Allergy Mild Rash/Hives Verified 08/13/24 01:36 lactose AdvReac Nausea & Verified 08/13/24 01:36 Vomiting & Diarrhea Review of Systems ROS Statement: Those systems with pertinent positive or pertinent negative responses have been documented in the HPI. ROS Other: All systems not noted in ROS Statement are negative. Past Medical History Past Medical History: No Reported History Additional Past Medical History / Comment(s): muscle spasms, shingles History of Any Multi-Drug Resistant Organisms: None Reported Past Surgical History: Cholecystectomy, Ear Surgery Additional Past Surgical History / Comment(s): tubes in ears Past Anesthesia/Blood Transfusion Reactions: No Reported Reaction Past Psychological History: No Psychological Hx Reported Smoking Status: Never smoker - Past Family History Mother Family Medical History: No Reported History General Exam Limitations: no limitations General appearance: alert, in no apparent distress, other (Slightly confused) Head exam: Present: atraumatic, normocephalic, normal inspection Eye exam: Present: normal appearance, EOMI Neck exam: Present: normal inspection. Absent: meningismus Respiratory exam: Present: normal lung sounds bilaterally. Absent: respiratory distress, wheezes, rales, rhonchi, stridor Cardiovascular Exam: Present: regular rate, normal rhythm, normal heart sounds. Absent: systolic murmur, diastolic murmur, rubs, gallop, clicks Extremities exam: Absent: pedal edema Neurological exam: Present: alert, oriented X3 Psychiatric exam: Present: normal affect, normal mood Skin exam: Present: warm, dry Course Vital Signs 08/13/24 08/13/24 08/13/24 01:34 02:46 04:38 Temperature 98.1 F 98.2 F Pulse Rate 72 54 L Respiratory 16 16 16 Rate Blood Pressure 109/75 92/57 O2 Sat by Pulse 99 99 Oximetry Chest Pain MDM - [facility] Sinus rhythm. Ventricular rate 79. PA interval 174. QRS 102. QT 392. QTc 427. No ST deviation Was pt. sent in by a medical professional or institution (JASPAL Charles, [facility], urgent care, hospital, or care home...) When possible be specific @ -No Did you speak to anyone other than the patient for history (EMS, parent, family, police, friend...)? What history was obtained from this source @ -Sister Did you review nursing and triage notes (agree or disagree)? Why? @ -I reviewed and agree with nursing and triage notes Were old charts reviewed (outside hosp., previous admission, EMS record, old EKG, old radiological studies, urgent care reports/EKG's, care home records)? Report findings @ -No old charts were reviewed Differential Diagnosis (chest pain, altered mental status, abdominal pain women, abdominal pain men, vaginal bleeding, weakness, fever, dyspnea, syncope, headache, dizziness, GI bleed, back pain, seizure, CVA, palpatations, mental health, musculoskeletal)? @ -[facility] Differential Chest Pain: Stable Angina, Unstable Angina, STEMI, NSTEMI Aortic Dissection, Pneumothorax, Musculoskeletal, Esophageal Spasm GERD, Cholecystitis, Pancreatitis, Zoster This is not meant to be an all-inclusive list. EKG interpreted by me (3pts min.). @ -As above X-rays interpreted by me (1pt min.). @ -Chest x-ray shows no acute process CT interpreted by me (1pt min.). @ -None done U/S interpreted by me (1pt. min.). @ -None done What testing was considered but not performed or refused? (CT, X-rays, U/S, labs)? Why? @ -None What meds were considered but not given or refused? Why? @ -None Did you discuss the management of the patient with other professionals (professionals i.e. JASPAL Charles, [employer], lab, RT, psych nurse, social services manager, mantel craftsman, teacher, inshore undersea warfare officer, rehabilitation caseworker)? Give summary @ -No Was smoking cessation discussed for >3mins.? @ -No Was critical care preformed (if so, how long)? @ -No Were there social determinants of health that impacted care today? How? (Homelessness, low income, unemployed, alcoholism, drug addiction, transportation, low edu. Level, literacy, decrease access to med. care, fci, rehab)? @ -No Was there de-escalation of care discussed even if they declined (Discuss DNR or withdrawal of care, Hospice)? DNR status @ -No What co-morbidities impacted this encounter? (DM, HTN, Smoking, COPD, CAD, Cancer, CVA, ARF, Chemo, Hep., AIDS, mental health diagnosis, sleep apnea, morbid obesity)? @ -None Was patient admitted / discharged? Hospital course, mention meds given and route, prescriptions, significant lab abnormalities, going to OR and other pertinent info. @ -29-year-old female presenting with chief complaint of chest pain that started tonight. History and physical examination are conducted. Vital signs are stable. Lab work shows no leukocytosis or anemia. Negative troponin. Urine shows signs of contamination, negative hCG. Urine toxicology positive for opiates, patient has been taking Barnum due to a recent dental procedure. Patient was a bit drowsy when she came in initially and was given Narcan 0.2 mg. She was also given aspirin Zofran and IV fluids. On reassessment she is resting comfortably showing no acute signs of distress. She reports improvement in her pain. Heart score of 1. Patient will be discharged and will follow-up with PCP and cardiology. Follow-up with PCP. Report back to ER with any new or worsening symptoms. Discussed return parameters and answered all questions. Patient conveyed verbal understanding and agreed to the plan. I discussed this case in detail with my attending Dr. mcdowell Undiagnosed new problem with uncertain prognosis? @ -No Drug Therapy requiring intensive monitoring for toxicity (Heparin, Nitro, Insulin, Cardizem)? @ -No Were any procedures done? @ -No Diagnosis/symptom? @ -Chest pain Acute, or Chronic, or Acute on Chronic? @ -Acute Uncomplicated (without systemic symptoms) or Complicated (systemic symptoms)? @ -Uncomplicated Side effects of treatment? @ -No Exacerbation, Progression, or Severe Exacerbation? @ -No Poses a threat to life or bodily function? How? (Chest pain, [place], [place], pneumonia, PE, COPD, DKA, ARF, appy, cholecystitis, CVA, Diverticulitis, Homicidal, Suicidal, threat to staff... and all critical care pts) @ -Low likelihood Disposition Clinical Impression: Chest pain Disposition: HOME SELF-CARE Condition: Fair Instructions (If sedation given, give patient instructions): Chest Pain (ED) Additional Instructions: Follow-up with PCP and cardiology. Report back to ER with any new or worsening symptoms. Is patient prescribed a controlled substance at d/c from ED?: No Referrals: Scot Neff MD [Primary Care Provider] - 1-2 days Ji Bolton MD [STAFF PHYSICIAN] - 1-2 days Time of Disposition: 04:17
[2024-08-13 04:52] VITALS: BP 92/57; PULSE 54; TEMP 98.2
== END 2024-08-13 04:52 | disposition home or self-care (01) ==
LOC: EC 01:33
DX: R07.9 Chest pain, unspecified (principal); Z91.040 Latex allergy status; Z91.011 Allergy to milk products
CPT/HCPCS: 99285; 96374; 96375; 96361; 36415; 93005; 80053; 83690; 83735; 84484; 85025; 85610; 85730; 81001; 81025; 80306; 71046; J2310; J2405

== ENCOUNTER 2024-08-27 13:20 | Emergency (ER) | payer OTHER ==
[2024-08-27 13:28] VITALS: RESP 18
--- NOTE | 2024-08-27 14:13 | ED ---
General Adult HPI - General Chief complaint: Fall Stated complaint: fall down stairs Time Seen by Provider: 08/27/24 14:01 Source: patient, RN notes reviewed Mode of arrival: ambulatory Limitations: no limitations - History of Present Illness Initial comments: Patient is a 29-year-old female present to the emergency department following a fall. Incident occurred an hour ago. Patient was walking in tripped and fell down around 5 steps. Patient mostly has discomfort of her right buttocks and lower leg. Patient denies any head injury or loss of consciousness. No neck or back pain. No abdominal pain. No chest pain or dyspnea. - Related Data Previous Rx's Medication Instructions Recorded Ibuprofen [Motrin] 600 mg PO Q6HR PRN #30 tab 11/30/23 Ibuprofen [Motrin] 600 mg PO Q6HR PRN #20 tab 08/27/24 Allergies Allergy/AdvReac Type Severity Reaction Status Date / Time Latex, Natural Rubber Allergy Mild Rash/Hives Verified 08/13/24 01:36 lactose AdvReac Nausea & Verified 08/13/24 01:36 Vomiting & Diarrhea Review of Systems ROS Statement: Those systems with pertinent positive or pertinent negative responses have been documented in the HPI. ROS Other: All systems not noted in ROS Statement are negative. Constitutional: Denies: fever Eyes: Denies: eye pain ENT: Denies: ear pain Respiratory: Denies: cough, dyspnea Cardiovascular: Denies: chest pain Endocrine: Denies: fatigue Gastrointestinal: Denies: abdominal pain Musculoskeletal: Reports: as per HPI. Denies: back pain Neurological: Denies: headache, weakness, confusion Past Medical History Past Medical History: No Reported History Additional Past Medical History / Comment(s): muscle spasms, shingles History of Any Multi-Drug Resistant Organisms: None Reported Past Surgical History: Cholecystectomy, Ear Surgery Additional Past Surgical History / Comment(s): tubes in ears Past Anesthesia/Blood Transfusion Reactions: No Reported Reaction Past Psychological History: No Psychological Hx Reported Smoking Status: Never smoker Past Alcohol Use History: None Reported Past Drug Use History: None Reported - Past Family History Mother Family Medical History: No Reported History General Exam Limitations: no limitations General appearance: alert, in no apparent distress Head exam: Present: atraumatic Eye exam: Present: normal appearance Neck exam: Present: tenderness (Mild tenderness mid cervical spine) Respiratory exam: Present: normal lung sounds bilaterally Cardiovascular Exam: Present: regular rate, normal rhythm Expanded Peripheral pulses: 2+: Dorsalis Pedis (R) GI/Abdominal exam: Present: soft. Absent: distended, tenderness Extremities exam: Present: tenderness (Moderate tenderness right proximal tibial region and right lateral ankle. There is also mild tenderness right posterior superior iliac spine region. Distally all extremities are neurovascular intact.) Back exam: Present: normal inspection. Absent: vertebral tenderness Neurological exam: Present: alert. Absent: motor sensory deficit Expanded Neurological exam: Present: protecting the airway Sensory exam: Upper Extremity Light Touch: Normal, Lower Extremity Light Touch: Normal Motor strength exam: RUE: 5, LUE: 5, RLE: 5, LLE: 5 Eye Response: (4) open spontaneously Motor Response: (6) obeys commands Verbal Response: (5) oriented Psychiatric exam: Present: normal affect, normal mood Skin exam: Present: normal color Course Vital Signs 08/27/24 13:23 Temperature 98.4 F Pulse Rate 74 Respiratory 18 Rate Blood Pressure 112/65 O2 Sat by Pulse 97 Oximetry Medical Decision Making - Medical Decision Making Was pt. sent in by a medical professional or institution (Dr. PA, [facility], urgent care, hospital, or shelter...) When possible be specific @ -No Did you speak to anyone other than the patient for history (EMS, parent, family, police, friend...)? What history was obtained from this source @ -No Did you review nursing and triage notes (agree or disagree)? Why? @ -I reviewed and agree with nursing and triage notes Were old charts reviewed (outside hosp., previous admission, EMS record, old EKG, old radiological studies, urgent care reports/EKG's, shelter records)? Report findings @ -No old charts were reviewed Differential Diagnosis (chest pain, altered mental status, abdominal pain women, abdominal pain men, vaginal bleeding, weakness, fever, dyspnea, syncope, headache, dizziness, GI bleed, back pain, seizure, CVA, palpatations, mental health, musculoskeletal)? @ -Differential Musculoskeletal Muscular strain, contusion, ligament sprain, fracture, arthritis, septic arthritis, bursitis, cellulitis, muscle spasm, nerve compression, DVT, arterial occlusion, herpes zoster, electrolyte abnormality, tumor.... This is not meant to be in all inclusive list EKG interpreted by me (3pts min.). @ -As above X-rays interpreted by me (1pt min.). @ -X-ray cervical spine, pelvis, right tib-fib, and right ankle do not reveal acute traumatic abnormality or fracture CT interpreted by me (1pt min.). @ -None done U/S interpreted by me (1pt. min.). @ -None done What testing was considered but not performed or refused? (CT, X-rays, U/S, labs)? Why? @ -None What meds were considered but not given or refused? Why? @ -None Did you discuss the management of the patient with other professionals (professionals i.e. Dr., PA, [facility]PER, lab, RT, psych nurse, adoption social worker, bricklayer paving brick, teacher, youth liaison officer, casey saw operator)? Give summary @ -No Was smoking cessation discussed for >3mins.? @ -No Was critical care preformed (if so, how long)? @ -No Were there social determinants of health that impacted care today? How? (Homel essness, low income, unemployed, alcoholism, drug addiction, transportation, low edu. Level, literacy, decrease access to med. care, long-term, rehab)? @ -No Was there de-escalation of care discussed even if they declined (Discuss DNR or withdrawal of care, Hospice)? DNR status @ -No What co-morbidities impacted this encounter? (DM, HTN, Smoking, COPD, CAD, Cancer, CVA, ARF, Chemo, Hep., AIDS, mental health diagnosis, sleep apnea, morbid obesity)? @ -None Was patient admitted / discharged? Hospital course, mention meds given and route, prescriptions, significant lab abnormalities, going to OR and other pertinent info. @ -Patient presents with fall with musculoskeletal pain. No neurological deficits. X-rays unremarkable. Patient reevaluated and updated Undiagnosed new problem with uncertain prognosis? @ -No Drug Therapy requiring intensive monitoring for toxicity (Heparin, Nitro, Insulin, Cardizem)? @ -No Were any procedures done? @ -No Diagnosis/symptom? @ -Fall, ankle sprain, cervical strain Acute, or Chronic, or Acute on Chronic? @ -Acute, acute, acute Uncomplicated (without systemic symptoms) or Complicated (systemic symptoms)? @ -Default Side effects of treatment? @ -No Exacerbation, Progression, or Severe Exacerbation? @ -No Poses a threat to life or bodily function? How? (Chest pain, [place], [place], pneumonia, PE, COPD, DKA, ARF, appy, cholecystitis, CVA, Diverticulitis, Homicidal, Suicidal, threat to staff... and all critical care pts) @ -No Disposition Clinical Impression: Fall, Ankle sprain, Cervical strain Disposition: HOME SELF-CARE Condition: Stable Instructions (If sedation given, give patient instructions): Cervical Strain (ED), Ankle Sprain (ED) Additional Instructions: Prescription sent to pharmacy. Ice to affected areas. Please follow-up with primary care physician in the next couple days for recheck. Return for weakness, increased pain, worsening or changing symptoms or other concerns. Prescriptions: Ibuprofen [Motrin] 600 mg PO Q6HR PRN #20 tab PRN Reason: Pain Is patient prescribed a controlled substance at d/c from ED?: No Referrals: Scot Neff MD [Primary Care Provider] - 1-2 days Time of Disposition: 15:51
[2024-08-27] MEDS: IBUPROFEN 600 MG TAB PO STA (14:18)
--- NOTE | 2024-08-27 15:16 | XR ---
EXAMINATION TYPE: XR pelvis AP view DATE OF EXAM: 08/27/2024 3:13 PM INDICATION: Patient age:Female; 29 years old; Reason for study: fall; [facility]. COMPARISON: None TECHNIQUE: The pelvis was examined in a single projection. FINDINGS: There is no evidence of fracture or dislocation. There is no soft tissue abnormality. Pelv ic phleboliths. Multilevel degenerative changes of the lower spine. IMPRESSION: No acute osseous pathology. [facility], , 08/27/2024 3:14 PM
--- NOTE | 2024-08-27 15:18 | XR ---
EXAMINATION TYPE: XR cervical spine comp DATE OF EXAM: 08/27/2024 3:13 PM INDICATION: Patient age:Female; 29 years old; Reason for study: fall; [facility]. COMPARISON: None TECHNIQUE: The cervical spine was imaged in frontal, lateral, odontoid, bilateral oblique projections . FINDINGS: The osseous structures show normal alignment without evidence of an acute fracture. The intervertebra l disk spaces are preserved. Pedicles are intact. Soft tissues are within normal limits. The odonto id appears intact. IMPRESSION: No fracture or dislocation. [facility], , 08/27/2024 3:15 PM
--- NOTE | 2024-08-27 15:20 | XR ---
EXAMINATION TYPE: XR ankle complete RT DATE OF EXAM: 08/27/2024 COMPARISON: NONE HISTORY: Pain , fall TECHNIQUE: Frontal, lateral and oblique images of the right ankle are obtained. FINDINGS: There is no acute fracture/dislocation evident. The joint spaces appear within normal neal its. Mild soft tissue swelling the ankle. Incidental well-corticated ossicle adjacent to the lateral malleolus. IMPRESSION: 1. No acute fracture or dislocation seen. 2. Mild soft tissue swelling of the ankle. [facility], , 08/27/2024 3:17 PM
--- NOTE | 2024-08-27 15:21 | XR ---
EXAMINATION TYPE: XR tibia fibula RT DATE OF EXAM: 08/27/2024 3:13 PM INDICATION: Patient age:Female; 29 years old; Reason for study: fall; [facility]. COMPARISON: Right ankle radiograph the same date, right knee radiograph 11/01/2018 TECHNIQUE: The right tibia/fibula was examined in AP and lateral projections. FINDINGS: No evidence of any acute osseous pathology joint dislocation. No radiopaque foreign body. M ild soft tissue swelling of the right ankle. Incidental ossicle adjacent to the lateral malleolus. IMPRESSION: 1. No evidence of acute fracture. 2. Mild soft tissue swelling of the right ankle. [facility], , 08/27/2024 3:19 PM
[2024-08-27 16:41] VITALS: BP 103/60; PULSE 65; TEMP 97.8
== END 2024-08-27 16:41 | disposition home or self-care (01) ==
LOC: EC 13:20
DX: S16.1XXA Strain of muscle, fascia and tendon at neck level, initial encounter (principal); S93.401A Sprain of unspecified ligament of right ankle, initial encounter; Z91.040 Latex allergy status; Z91.011 Allergy to milk products; W10.9XXA Fall (on) (from) unspecified stairs and steps, initial encounter; Y93.01 Activity, walking, marching and hiking
CPT/HCPCS: 72050; 72170; 73590; 73610; 99284; L4350

== ENCOUNTER → 2025-02-12 | Outpatient (CLI) | payer OTHER ==
--- NOTE | 2025-02-12 16:35 | US ---
EXAMINATION TYPE: US transvaginal DATE OF EXAM: 02/12/2025 COMPARISON: NONE CLINICAL INDICATION: Female, 29 years old with history of N93.9 ABN UTERINE VAGINAL BLEEDING; long cy mihir lasting 3 weeks, no pain, cramping or other concerns TECHNIQUE: Transvaginal (TV). Transabdominal grayscale sonographic images of the pelvis were acquired. Transvaginal sonographic im ages were medically necessary to better assess the following anatomy: Doppler imaging: Color Doppler Images were obtained. FINDINGS: Date of LMP: start: end: 01/25/2025) EXAM MEASUREMENTS: Uterus: 8.5x4.5x5.5cm Endometrial Stripe: 0.7cm Right Ovary: 2.2x1.8x1.4cm Left Ovary: 2.5x2.4x3.2cm 1. Uterus: Anteverted slightly heterogenous CX: calcifications seen within 2. Endometrium: wnl 3. Right Ovary: ?dominant follicles vs cystic areas noted 4. Left Ovary: Complex area seen w vascularity surroundin.0x2.4x1.9cm 5. Bilateral Adnexa: wnl 6. Posterior cul-de-sac: FF seen within There is suspected corpus luteal cyst left ovary IMPRESSION: No suspicious findings seen to account for patient's symptoms. O-RADS 2021 [email or web address] [facility], , 02/12/2025 4:33 PM
== END | disposition home or self-care (01) ==
LOC: RADUSWWP 15:56
PROVIDERS: ATTEND Family Medicine
DX: N93.9 Abnormal uterine and vaginal bleeding, unspecified (principal)
CPT/HCPCS: 76830